=== PATIENT | female | born 1930 | race Caucasian/White ===

== ENCOUNTER 2016-08-12 16:40 | Inpatient (IN) | payer MEDICARE, OTHER ==
[2016-08-12] MEDS ORDERED: NS 0.9% 1000 ML* 1,000 ML IV ONE ×2 (17:29→22:18)
--- NOTE | 2016-08-12 17:49 | RAD ---
INDICATION: Fever COMPARISON: None TECHNIQUE: An AP portable view obtained at 1744 hours is submitted. FINDINGS: Bones/Soft Tissues: There are no acute bony findings. There is a left-sided cardiac pacemaker Cardiomediastinal: The cardiomediastinal silhouette is normal. Lungs: There is bibasilar interstitial change which could be acute or chronic. Pleura: There are no significant pleural effusions. Other: None IMPRESSION: BIBASILAR INTERSTITIAL INFILTRATIVE CHANGE OF UNKNOWN CHRONICITY.
[2016-08-12 18:17] LABS: Hematocrit 35 % (35-47); Hemoglobin 10.8 g/dl (12.0-16.0); Mean Corpuscular HGB Conc 31 g/dl (31-36); Mean Corpuscular Hemoglobin 27 pg (27-31); Mean Corpuscular Volume 84 fL (80-97); Mean Platelet Volume 7 um3 (7.4-10.4); Red Blood Count 4.09 10^6/ul (4.0-5.4); Red Cell Distribution Width 15 % (10.5-15); White Blood Count 11.9 10^3/ul (3.5-10.8)
[2016-08-12 18:33] LABS: Albumin 3.2 g/dL (3.2-5.2); BUN/Creatinine Ratio 17.7 (8-20); C Reactive Protein 160.94 mg/L (< 5.00); Calcium 8.9 mg/dL (8.6-10.3); EGFR African American 89.2 (>60); EGFR Non-African American 69.3 (>60); Globulin 4.1 g/dL (2-4); Potassium 4.1 mmol/L (3.5-5.0); Total Bilirubin 0.5 mg/dL (0.2-1.0); Total Protein 7.3 g/dL (6.4-8.9)
[2016-08-12 18:35] LABS: Troponin I 0.03 ng/mL (<0.04)
[2016-08-12 20:09] LABS: Urine Bilirubin Negative (Negative); Urine Glucose Negative (Negative); Urine Nitrite Negative (Negative)
--- NOTE | 2016-08-12 21:35 | RAD ---
INDICATION: Fever. Cholecystectomy COMPARISON: CT 07/29/2016 TECHNIQUE: Longitudinal and transverse scans of the right upper quadrant were obtained. Doppler interrogation of the hepatic and portal venous system was performed. FINDINGS: Liver: The liver is mildly heterogeneous in echotexture. The liver measures 13.8 cm in cephalocaudal dimension. There is a right hepatic lobe cyst measuring 2.0 x 1.2 x 2.2 cm. Vessels: There is normal hepatic and portal venous flow. Bile ducts: There is mild intra- and extrahepatic ductal dilatation likely related to postcholecystectomy state. The common duct measures 1.2 cm. Gallbladder: Cholecystectomy. Pancreas: Very limited evaluation. Right kidney: The right kidney is normal in size and echogenicity. There are no masses or calculi. There is no evidence of hydronephrosis. The right kidney measures 9.2 x 3.8 x 3.9 cm. IVC and aorta: The aorta and superior vena cava appear normal. Fluid: There is no ascites. Other: There is a probable small peripancreatic lymph node in the holley hepatis. This measures 1.3 x 0.6 cm. There is a small right-sided effusion. IMPRESSION: CHOLECYSTECTOMY. MILD DUCTAL DILATATION LIKELY RELATED TO POSTCHOLECYSTECTOMY STATE. SMALL PERIPANCREATIC LYMPH NODE. A SHORT AXIS MEASUREMENT IS NOT ENLARGED. SMALL RIGHT-SIDED EFFUSION.
[2016-08-12] MEDS ORDERED: Levofloxacin TAB* 250 MG PO ONE (22:10)
[2016-08-12] MEDS ORDERED: cefTRIAXone(*) 1 GM in NS 0.9% 50 ML* 50 ML IVPB ONE (22:15)
--- NOTE | 2016-08-12 23:31 | ED ---
Rashel Garces Billy, scribed for Tony Martinez MD on 08/12/16 at 1722 . Complex/Multi-Sys Presentation - HPI Summary HPI Summary: Patient is an 86 year-old female coming to [facility] with her daughter for evaluation of a fever, and concern for influenza. She is currently being treated with ciprofloxacin. Her daughter states that retirement staff noticed several days ago that the patient had increased confusion. At this time in the ED, the patient is calm, afebrile, and denies any symptoms such as cough or pain. However, her daughter states that the patient is certainly more confused than baseline. - History Of Current Complaint Chief Complaint: EDFever Time Seen by Provider: 08/12/16 16:45 Hx Obtained From: Family/Dog Walker - daughter Hx From Patient Unobtainable Due To: Altered Mental Status - increased confusion Onset/Duration: Gradual Onset, Lasting Days, Still Present Timing: Constant Severity Currently: Moderate Severity Initially: Moderate Location: Negative Aggravating Factor(s): none Alleviating Factor(s): none Associated Signs And Symptoms: Positive: Confusion, Fever. Negative: Cough - Allergies/Home Medications Allergies/Adverse Reactions: Allergies Allergy/AdvReac Type Severity Reaction Status Date / Time No Known Allergies Allergy Verified 07/22/16 15:53 PMH/Surg Hx/FS Hx/Imm Hx Cardiovascular History: Reports: Hx Atrial Fibrillation, Hx Pacemaker/ICD Musculoskeletal History: Reports: Other Musculoskeletal History - hip and knee replacements Neurological History: Reports: Other Neuro Impairments/Disorders - Alzheimer's - Surgical History Surgery Procedure, Year, and Place: HYSTERECTOMY Infectious Disease History: No Infectious Disease History: Denies: Traveled Outside the [place] in Last 30 Days - Family History Known Family History: Negative: Cardiac Disease, Hypertension, Diabetes - Social History Alcohol Use: None Hx Substance Use: No Substance Use Type: Reports: None Hx Tobacco Use: No Smoking Status (MU): Never Smoked Tobacco Review of Systems Positive: Fever - afebrile at this time Negative: Cough Neurological: Other - increased confusion All Other Systems Reviewed And Are Negative: Yes Physical Exam Triage Information Reviewed: Yes Vital Signs On Initial Exam: Initial Vitals Temp Pulse Resp BP Pulse Ox 99.2 F 84 20 110/64 100 08/12/16 16:47 08/12/16 16:47 08/12/16 16:47 08/12/16 16:47 08/12/16 16:47 Vital Signs Reviewed: Yes Completion Of Physical Exam Limited Due To: Altered Mental Status Appearance: Positive: Well-Appearing, No Pain Distress Skin: Positive: Warm, Skin Color Reflects Adequate Perfusion, Dry Head/Face: Positive: Normal Head/Face Inspection Eyes: Positive: Normal Respiratory/Lung Sounds: Positive: Clear to Auscultation, Breath Sounds Present Cardiovascular: Positive: RRR Abdomen Description: Positive: Nontender, Soft Musculoskeletal: Positive: Normal Neurological: Positive: Other - does not seem to understand questions Psychiatric: Positive: Affect/Mood Appropriate AVPU Assessment: Alert Diagnostics - Vital Signs Vital Signs Temp Pulse Resp BP Pulse Ox 08/12/16 16:47 99.2 F 84 20 110/64 100 - Laboratory Lab Results: Lab Results 08/12/16 08/12/16 08/12/16 Range/Units 17:50 17:58 17:58 WBC 11.9 H (3.5-10.8) 10^3/ul RBC 4.09 (4.0-5.4) 10^6/ul Hgb 10.8 L (12.0-16.0) g/dl Hct 35 (35-47) % MCV 84 (80-97) fL MCH 27 (27-31) pg MCHC 31 (31-36) g/dl RDW 15 (10.5-15) % Plt Count 294 (150-450) 10^3/ul MPV 7 L (7.4-10.4) um3 Neut % (Auto) 74.1 (38-83) % Lymph % (Auto) 12.7 L (25-47) % Harris % (Auto) 12.7 H (1-9) % Eos % (Auto) 0 (0-6) % Baso % (Auto) 0.5 (0-2) % Absolute Neuts (auto) 8.8 H (1.5-7.7) 10^3/ul Absolute Lymphs (auto) 1.5 (1.0-4.8) 10^3/ul Absolute Monos (auto) 1.5 H (0-0.8) 10^3/ul Absolute Eos (auto) 0 (0-0.6) 10^3/ul Absolute Basos (auto) 0.1 (0-0.2) 10^3/ul Absolute Nucleated RBC 0.01 10^3/ul Nucleated RBC % 0.1 INR (Anticoag Therapy) 1.03 (0.89-1.11) Sodium 132 L (133-145) mmol/L Potassium 4.1 (3.5-5.0) mmol/L Chloride 100 L (101-111) mmol/L Carbon Dioxide 25 (22-32) mmol/L Anion Gap 7 (2-11) mmol/L BUN 14 (6-24) mg/dL Creatinine 0.79 (0.51-0.95) mg/dL Est GFR ( Amer) 89.2 (>60) Est GFR (Non-Af Amer) 69.3 (>60) BUN/Creatinine Ratio 17.7 (8-20) Glucose 112 H (70-100) mg/dL Lactic Acid (0.5-2.0) mmol/L Calcium 8.9 (8.6-10.3) mg/dL Total Bilirubin 0.50 (0.2-1.0) mg/dL AST 26 (13-39) U/L ALT 17 (7-52) U/L Alkaline Phosphatase 152 H (34-104) U/L Troponin I 0.03 (<0.04) ng/mL C-Reactive Protein 160.94 H (< 5.00) mg/L Total Protein 7.3 (6.4-8.9) g/dL Albumin 3.2 (3.2-5.2) g/dL Globulin 4.1 H (2-4) g/dL Albumin/Globulin Ratio 0.8 L (1-3) Urine Color Urine Appearance Urine pH (5-9) Ur Specific [place] (1.010-1.030) Urine Protein (Negative) Urine Ketones (Negative) Urine Blood (Negative) Urine Nitrate (Negative) Urine Bilirubin (Negative) Urine Urobilinogen (Negative) Ur Leukocyte Esterase (Negative) Urine Glucose (Negative) Urine Ascorbic Acid (Negative) Influenza A (Rapid) (Negative) Influenza B (Rapid) (Negative) 08/12/16 08/12/16 08/12/16 Range/Units 17:58 18:47 20:00 WBC (3.5-10.8) 10^3/ul RBC (4.0-5.4) 10^6/ul Hgb (12.0-16.0) g/dl Hct (35-47) % MCV (80-97) fL MCH (27-31) pg MCHC (31-36) g/dl RDW (10.5-15) % Plt Count (150-450) 10^3/ul MPV (7.4-10.4) um3 Neut % (Auto) (38-83) % Lymph % (Auto) (25-47) % Harris % (Auto) (1-9) % Eos % (Auto) (0-6) % Baso % (Auto) (0-2) % Absolute Neuts (auto) (1.5-7.7) 10^3/ul Absolute Lymphs (auto) (1.0-4.8) 10^3/ul Absolute Monos (auto) (0-0.8) 10^3/ul Absolute Eos (auto) (0-0.6) 10^3/ul Absolute Basos (auto) (0-0.2) 10^3/ul Absolute Nucleated RBC 10^3/ul Nucleated RBC % INR (Anticoag Therapy) (0.89-1.11) Sodium (133-145) mmol/L Potassium (3.5-5.0) mmol/L Chloride (101-111) mmol/L Carbon Dioxide (22-32) mmol/L Anion Gap (2-11) mmol/L BUN (6-24) mg/dL Creatinine (0.51-0.95) mg/dL Est GFR ( Amer) (>60) Est GFR (Non-Af Amer) (>60) BUN/Creatinine Ratio (8-20) Glucose (70-100) mg/dL Lactic Acid 1.0 (0.5-2.0) mmol/L Calcium (8.6-10.3) mg/dL Total Bilirubin (0.2-1.0) mg/dL AST (13-39) U/L ALT (7-52) U/L Alkaline Phosphatase (34-104) U/L Troponin I (<0.04) ng/mL C-Reactive Protein (< 5.00) mg/L Total Protein (6.4-8.9) g/dL Albumin (3.2-5.2) g/dL Globulin (2-4) g/dL Albumin/Globulin Ratio (1-3) Urine Color Yellow Urine Appearance Clear Urine pH 6.0 (5-9) Ur Specific [place] 1.017 (1.010-1.030) Urine Protein Negative (Negative) Urine Ketones Negative (Negative) Urine Blood Negative (Negative) Urine Nitrate Negative (Negative) Urine Bilirubin Negative (Negative) Urine Urobilinogen Negative (Negative) Ur Leukocyte Esterase Negative (Negative) Urine Glucose Negative (Negative) Urine Ascorbic Acid * H (Negative) Influenza A (Rapid) Negative (Negative) Influenza B (Rapid) Negative (Negative) Result Diagrams: 08/12/16 17:50 08/12/16 17:58 Lab Statement: Any lab studies that have been ordered have been reviewed, and results considered in the medical decision making process. - Radiology CXR Radiology Interpretation Completed By: Radiologist - BIBASILAR INTERSTITIAL INFILTRATIVE CHANGE OF UNKNOWN CHRONICITY. - Ultrasound No standard instances Ultrasound Interpretation Completed By: Radiologist - Abdominal US: CHOLECYSTECTOMY. MILD DUCTAL DILATATION LIKELY RELATED TO POSTCHOLECYSTECTOMY STATE. SMALL PERIPANCREATIC LYMPH NODE. A SHORT AXIS MEASUREMENT IS NOT ENLARGED. SMALL RIGHT-SIDED EFFUSION. - EKG 1802 EKG Interpretation: afib 110 bpm, nonspecific changes Complex Multi-Symp Course/Dx Course Of Treatment: Maria Del Rosario Barba presented from the [place] with more confusion. She has been on Cipro for a UTI but reportedly ran a fever today. She was found to have a likely pneumonia and was treated with antibiotics and fluids. She has underlying A-fib and came in a little fast but improved some with fluids and I think she is stable for outpatient treatment. - Diagnoses Provider Diagnoses: Pneumonia Discharge - Discharge Plan Condition: Stable Disposition: HOME Prescriptions: Cefdinir* [Omnicef*] 600 mg PO DAILY #9 btl Patient Education Materials: Pneumonia (ED) Referrals: Deirdre Allred MD [Primary Care Provider] - The documentation as recorded by the Rashel shaw Billy accurately reflects the service I personally performed and the decisions made by me, Tony Martinez MD.
--- NOTE | 2016-08-13 02:05 | ED ---
Natanael Garces Matthew, scribed for Bud Calhoun on 08/13/16 at 0159 . Progress - Progress Note Progress Note: The patient is a sign out from Dr. Martinez. The patient is tachycardic and hypoxic. She will be admitted to Dr. Henderson for further work-up and management. The patient does normal use home oxygen. Course/Dx - Course Course Of Treatment: Maria Del Rosario Barba presented from the [place] with more confusion. She has been on Cipro for a UTI but reportedly ran a fever today. She was found to have a likely pneumonia and was treated with antibiotics and fluids. She has underlying A-fib and came in a little fast but improved some with fluids and I think she is stable for outpatient treatment. - Diagnoses Provider Diagnoses: Pneumonia - Provider Notifications Discussed Care Of Patient With: Dr. Henderson (Hospitalist) at 1:58 -- Notified of patient's history and will admit the patient into his services. The documentation as recorded by the Natanael shaw Matthew accurately reflects the service I personally performed and the decisions made by me, Bud Calhoun.
[2016-08-13] MEDS ORDERED: Benzonatate CAP* 100 MG PO PRN (04:56)
[2016-08-13] MEDS ORDERED: Furosemide TAB* 20 MG PO SCH (05:00)
--- NOTE | 2016-08-13 07:39 | PN ---
Subjective Date of Service: 08/13/16 Interval History: Pt is feeling well. She denies any pain or SOB but she is not sure where she is or what is going on. Objective Active Medications: Atenolol (Tenormin Tab*) 25 mg PO DAILY LEVAR Benzonatate (Tessalon Cap*) 200 mg PO TID PRN PRN Reason: COUGH Cholecalciferol (Vitamin D Tab*) 1,000 units PO DAILY LEVAR Dabigatran (Pradaxa Cap(Nf)) 150 mg PO BID LEVAR Ferrous Sulfate (Ferrous Sulfate Tab*) 325 mg PO BID LEVAR Sodium Chloride (Ns 0.9% 1000 Ml*) 1,000 mls @ 100 mls/hr IV PER RATE LEVAR Ceftriaxone Sodium 1,000 mg/ (Sodium Chloride) 50 mls @ 200 mls/hr IVPB Q24H LEVAR Azithromycin 500 mg/ Sodium (Chloride) 250 mls @ 250 mls/hr IVPB Q24H LEVAR Multivitamins/Minerals (Preservision Areds(Multivitamins/Mineral)(Nf)) 1 cap PO BID LEVAR Omeprazole (Prilosec Cap*) 20 mg PO DAILY LEVAR Trazodone HCl (Desyrel Tab*) 100 mg PO BEDTIME LEVAR Vital Signs 08/13/16 08/13/16 08/13/16 05:00 05:23 06:16 Temperature 98.8 F 99.3 F Pulse Rate 121 103 Respiratory 24 Rate Blood Pressure 132/88 124/61 (mmHg) O2 Sat by Pulse 93 96 Oximetry 08/13/16 08/13/16 06:24 06:47 Temperature 99.3 F Pulse Rate 103 Respiratory 24 24 Rate Blood Pressure 124/61 (mmHg) O2 Sat by Pulse 96 Oximetry Oxygen Devices in Use Now: Nasal Cannula - 2L-96% Appearance: Elderly female lying flat in bed, NAD Eyes: No Scleral Icterus Ears/Nose/Mouth/Throat: Mucous Membranes Moist Respiratory: Symmetrical Chest Expansion and Respiratory Effort, - - crackles about 1/[address] up on L Cardiovascular: NL Sounds; No Murmurs; No JVD, No Edema, - - irregularly irregular, mildly tachycardic Abdominal: NL Sounds; No Tenderness; No Distention Extremities: No Clubbing, Cyanosis Skin: No Rash or Ulcers, No Nodules or Sclerosis Neurological: - - pleasantly confused Result Diagrams: 08/12/16 17:50 08/12/16 17:58 Additional Lab and Data: Lab Results 08/12/16 08/12/16 08/12/16 Range/Units 17:50 17:58 17:58 WBC 11.9 H (3.5-10.8) 10^3/ul RBC 4.09 (4.0-5.4) 10^6/ul Hgb 10.8 L (12.0-16.0) g/dl Hct 35 (35-47) % MCV 84 (80-97) fL MCH 27 (27-31) pg MCHC 31 (31-36) g/dl RDW 15 (10.5-15) % Plt Count 294 (150-450) 10^3/ul MPV 7 L (7.4-10.4) um3 Neut % (Auto) 74.1 (38-83) % Lymph % (Auto) 12.7 L (25-47) % Churchill % (Auto) 12.7 H (1-9) % Eos % (Auto) 0 (0-6) % Baso % (Auto) 0.5 (0-2) % Absolute Neuts (auto) 8.8 H (1.5-7.7) 10^3/ul Absolute Lymphs (auto) 1.5 (1.0-4.8) 10^3/ul Absolute Monos (auto) 1.5 H (0-0.8) 10^3/ul Absolute Eos (auto) 0 (0-0.6) 10^3/ul Absolute Basos (auto) 0.1 (0-0.2) 10^3/ul Absolute Nucleated RBC 0.01 10^3/ul Nucleated RBC % 0.1 INR (Anticoag Therapy) 1.03 (0.89-1.11) Sodium 132 L (133-145) mmol/L Potassium 4.1 (3.5-5.0) mmol/L Chloride 100 L (101-111) mmol/L Carbon Dioxide 25 (22-32) mmol/L Anion Gap 7 (2-11) mmol/L BUN 14 (6-24) mg/dL Creatinine 0.79 (0.51-0.95) mg/dL Est GFR ( Amer) 89.2 (>60) Est GFR (Non-Af Amer) 69.3 (>60) BUN/Creatinine Ratio 17.7 (8-20) Glucose 112 H (70-100) mg/dL Lactic Acid (0.5-2.0) mmol/L Calcium 8.9 (8.6-10.3) mg/dL Total Bilirubin 0.50 (0.2-1.0) mg/dL AST 26 (13-39) U/L ALT 17 (7-52) U/L Alkaline Phosphatase 152 H (34-104) U/L Troponin I 0.03 (<0.04) ng/mL C-Reactive Protein 160.94 H (< 5.00) mg/L Total Protein 7.3 (6.4-8.9) g/dL Albumin 3.2 (3.2-5.2) g/dL Globulin 4.1 H (2-4) g/dL Albumin/Globulin Ratio 0.8 L (1-3) Urine Color Urine Appearance Urine pH (5-9) Ur Specific [place] (1.010-1.030) Urine Protein (Negative) Urine Ketones (Negative) Urine Blood (Negative) Urine Nitrate (Negative) Urine Bilirubin (Negative) Urine Urobilinogen (Negative) Ur Leukocyte Esterase (Negative) Urine Glucose (Negative) Urine Ascorbic Acid (Negative) Influenza A (Rapid) (Negative) Influenza B (Rapid) (Negative) 08/12/16 08/12/16 08/12/16 Range/Units 17:58 18:47 20:00 WBC (3.5-10.8) 10^3/ul RBC (4.0-5.4) 10^6/ul Hgb (12.0-16.0) g/dl Hct (35-47) % MCV (80-97) fL MCH (27-31) pg MCHC (31-36) g/dl RDW (10.5-15) % Plt Count (150-450) 10^3/ul MPV (7.4-10.4) um3 Neut % (Auto) (38-83) % Lymph % (Auto) (25-47) % Churchill % (Auto) (1-9) % Eos % (Auto) (0-6) % Baso % (Auto) (0-2) % Absolute Neuts (auto) (1.5-7.7) 10^3/ul Absolute Lymphs (auto) (1.0-4.8) 10^3/ul Absolute Monos (auto) (0-0.8) 10^3/ul Absolute Eos (auto) (0-0.6) 10^3/ul Absolute Basos (auto) (0-0.2) 10^3/ul Absolute Nucleated RBC 10^3/ul Nucleated RBC % INR (Anticoag Therapy) (0.89-1.11) Sodium (133-145) mmol/L Potassium (3.5-5.0) mmol/L Chloride (101-111) mmol/L Carbon Dioxide (22-32) mmol/L Anion Gap (2-11) mmol/L BUN (6-24) mg/dL Creatinine (0.51-0.95) mg/dL Est GFR ( Amer) (>60) Est GFR (Non-Af Amer) (>60) BUN/Creatinine Ratio (8-20) Glucose (70-100) mg/dL Lactic Acid 1.0 (0.5-2.0) mmol/L Calcium (8.6-10.3) mg/dL Total Bilirubin (0.2-1.0) mg/dL AST (13-39) U/L ALT (7-52) U/L Alkaline Phosphatase (34-104) U/L Troponin I (<0.04) ng/mL C-Reactive Protein (< 5.00) mg/L Total Protein (6.4-8.9) g/dL Albumin (3.2-5.2) g/dL Globulin (2-4) g/dL Albumin/Globulin Ratio (1-3) Urine Color Yellow Urine Appearance Clear Urine pH 6.0 (5-9) Ur Specific [place] 1.017 (1.010-1.030) Urine Protein Negative (Negative) Urine Ketones Negative (Negative) Urine Blood Negative (Negative) Urine Nitrate Negative (Negative) Urine Bilirubin Negative (Negative) Urine Urobilinogen Negative (Negative) Ur Leukocyte Esterase Negative (Negative) Urine Glucose Negative (Negative) Urine Ascorbic Acid * H (Negative) Influenza A (Rapid) Negative (Negative) Influenza B (Rapid) Negative (Negative) Assess/Plan/Problems-Billing Ms Barba is an 86 yo F who has a h/o afib, dementia and GERD who presented to the ER with c/o worsened confusion and fever and was admitted as she was found to be mildly hypoxic in the ER. - Patient Problems (1) RLL pneumonia Current Visit: Yes Status: Acute Code(s): J18.1 - LOBAR PNEUMONIA, UNSPECIFIED ORGANISM SNOMED Code(s): 662170040 Comment: On CXR the patient appears to have bibasilar infiltrative change R> L. With the low grade temp (99.2-99.3) and hypoxia found in the ER pneumonia is a possiblility. Will send urinary legionella and s pneumoniae antigens. Continue ceftriaxone and azithromycin for now. Will try to wean from supplemental O2. She does not appear to be in any respiratory distress. Monitor respiratory symptoms. (2) Afib Current Visit: Yes Status: Acute Code(s): I48.91 - UNSPECIFIED ATRIAL FIBRILLATION SNOMED Code(s): 09134950 Comment: The patient's afib is currently not well controlled. Will increase her atenolol to 25mg daily. Will continue current does of pradaxa. Monitor HR. (3) Dementia Current Visit: Yes Status: Acute Code(s): F03.90 - UNSPECIFIED DEMENTIA WITHOUT BEHAVIORAL DISTURBANCE SNOMED Code(s): 68515241 Comment: The patient was brought in for more confusion than usual. Will need to discuss with the patient's daughter what her baseline is. Currently she is unable to even tell me she was in the hospital. Re-orient as needed and continue supportive care. (4) GERD (gastroesophageal reflux disease) Current Visit: Yes Status: Acute Code(s): K21.9 - GASTRO-ESOPHAGEAL REFLUX DISEASE WITHOUT ESOPHAGITIS SNOMED Code(s): 290429479 Comment: Continue omeprazole. (5) DVT prophylaxis Current Visit: Yes Status: Acute Code(s): UBX0767 - SNOMED Code(s): 291273129 Comment: pradaxa (6) Full code status Current Visit: Yes Status: Acute Code(s): Z78.9 - OTHER SPECIFIED HEALTH STATUS SNOMED Code(s): 044804505
[2016-08-13] MEDS: cefTRIAXone VIAL(*) 1,000 MG in NS 0.9% 50 ML* 50 ML IVPB SCH ×2 (08:29→08:35)
[2016-08-13] MEDS ORDERED: CMC Dabigatran CAP(NF) 150 MG CAP PO SCH (09:00)
[2016-08-13] MEDS ORDERED: MINERALS PO SCH (09:00)
[2016-08-13] MEDS ORDERED: Atenolol TAB* 25 MG PO SCH (09:00)
[2016-08-13] MEDS ORDERED: MULTIPLE VITAMINS PO SCH (09:00)
[2016-08-13] MEDS: Cholecalciferol TAB* 1000 UNITS PO SCH (09:42)
[2016-08-13] MEDS: Omeprazole CAP* 20 MG PO SCH (09:42)
[2016-08-13] MEDS: Azithromycin IV(*) 500 MG in NS 0.9% 250 ML* 250 ML IVPB SCH (09:43)
[2016-08-13] MEDS: Ferrous Sulfate TAB* 325 MG PO SCH ×2 (09:43→22:15)
[2016-08-13] MEDS: Atenolol TAB* 25 MG PO SCH (09:43)
[2016-08-13] MEDS: Multivitamins/Minera Areds(NF) 1 CAP CAP PO SCH ×2 (09:53→22:17)
--- NOTE | 2016-08-13 14:42 | CONSULT ---
Consult Consult: Ms. Barba is an 86 year old woman with history of dementia, now with increased immobility, stiffness, a markedly elevated CRP, basilar infiltrates and elevated alkaline phosphatase. In part this could be from polymyalgia rheumatica, given her age, inflammation and decreased mobility; also consider viral process? I advise a trial of Prednisone 20mg daily which at a low dose may help her symptoms and reduce inflammation. Check vitamin D in light of elevated alk phos. Will check autoimmune serologies and follow; thanks!
[2016-08-13] MEDS: predniSONE TAB* 20 MG PO SCH (16:20)
[2016-08-13] MEDS: NS 0.9% 1000 ML* 1,000 ML IV SCH (17:53)
[2016-08-13] MEDS: traZODone TAB* 100 MG PO SCH (22:15)
[2016-08-14] MEDS: NS 0.9% 1000 ML* 1,000 ML IV SCH (04:19)
[2016-08-14] MEDS: Azithromycin IV(*) 500 MG in NS 0.9% 250 ML* 250 ML IVPB SCH (04:39)
[2016-08-14] MEDS: cefTRIAXone VIAL(*) 1,000 MG in NS 0.9% 50 ML* 50 ML IVPB SCH (04:39)
[2016-08-14 08:17] LABS: BUN/Creatinine Ratio 21.9 (8-20); Calcium 7.7 mg/dL (8.6-10.3); EGFR African American 113.7 (>60); EGFR Non-African American 88.4 (>60); Potassium 3.8 mmol/L (3.5-5.0)
[2016-08-14 08:18] LABS: Hematocrit 30 % (35-47); Hemoglobin 9.6 g/dl (12.0-16.0); Mean Corpuscular HGB Conc 32 g/dl (31-36); Mean Corpuscular Hemoglobin 27 pg (27-31); Mean Corpuscular Volume 85 fL (80-97); Mean Platelet Volume 8 um3 (7.4-10.4); Red Blood Count 3.58 10^6/ul (4.0-5.4); Red Cell Distribution Width 15 % (10.5-15); White Blood Count 10.2 10^3/ul (3.5-10.8)
--- NOTE | 2016-08-14 08:42 | CONS ---
CONSULTATION REPORT: DATE OF CONSULT: 08/13/16 CONSULTING PHYSICIAN: Sosa Savage DO REASON FOR CONSULTATION: Evaluate for cause of elevated inflammatory markers. HISTORY OF PRESENT ILLNESS: Ms. Maria Del Rosario Barba is an 86-year-old woman with a history of dementia . History is obtained partly from the patient, but also her daughter, and the chart as well as hosp ital records. She presented with an evaluation of a low-grade fever. She had been followed with Dr Jostin Allred, but her daughter had noted over the past couple of days that she had had increased confusi on over and above her baseline and confusion with increased immobility and some decline in overall c ognitive function, but also physical functions, so that she was not walking very well. The patient denied any headache or jaw pain, or jaw claudication type symptoms. She denied any specific pain, b ut it was noted that she was having some difficulty with mobilization in terms of her hips and shoul gianni regions. She had been treated for an upper respiratory infection with ciprofloxacin, but she carrillo s had increased confusion and therefore, she was admitted from the emergency center. She currently denies any cough or pain, but she has been more confused as noted above. Imaging studies revealed s ome basilar infiltrates and she also had an elevated alkaline phosphatase as well as a markedly elev ated C-reactive protein, consistent with an inflammatory type process. She currently has no specifi c complaints except that she has been confused and she has had a low-grade fever, but she denied any cough. PAST MEDICAL HISTORY: Includes a history of dementia. PAST SURGICAL HISTORY: Includes pacemaker. IMMUNE HISTORY: No recent immunizations. CARDIOVASCULAR HISTORY: She does have a history of atrial fibrillation and a history of a pacemaker and ICD. MUSCULOSKELETAL HISTORY: Includes a hip and knee replacement. NEUROLOGIC: Notable for Alzheimer's dementia. No recent infectious history. Denies any recent dyan el outside of the [place]. CURRENT MEDICATIONS: Include: 1. Omeprazole. 2. Sodium chloride/trazodone 100 mg at bedtime. 3. Atenolol. 4. Ceftriaxone. 5. Pradaxa. 6. Furosemide. 7. She is also on Levaquin. FAMILY HISTORY: Negative for cardiac disease, hypertension, or diabetes or immune conditions. SOCIAL HISTORY: No alcohol use, no substance abuse, and no tobacco use. She has never smoked tobac co. REVIEW OF SYSTEMS: Notable for fever, but she was afebrile at the time. Pulmonary: Denied cough or shortness of breath. Cardiac: Denied chest wall pain. Abdomen: Denied stomach upset. Neurologic : Denied specific headaches. Musculoskeletal: Mild obstruction as noted. Endocrine: No glandular swelling. No lymph node swelling. Other 14-point review of systems were reviewed with the patient and her daughter and were otherwise negative. She has been more confused lately, but she is able to answer simple questions. PHYSICAL EXAMINATION: General: She was pleasant, in no acute distress. Supine. She required elli tance with mobilization, even sitting up. Vital Signs: T-max was 99.3, pulse rate of 100 to 103, r espiratory rate of 24, blood pressure 124/61, and O2 sats is 96%. HEENT: Exam was normocephalic an d atraumatic. Pupils equal, round, and reactive to light and accommodate. Mucous membranes are efra st. Respiratory: Symmetric chest expansion in respiratory effort with some minimal crackles at the base of the left and right. Cardiovascular: Exam revealed normal heart sounds except for the rate was irregularly irregular and she was mildly tachycardic. Neck: No JVP distention and no edema. V ascular: No carotid bruits. Abdomen: Soft, nontender, and nondistended. No organomegaly. No hepa tosplenomegaly. Extremities: No cyanosis, clubbing, or edema. Skin: No rashes or ulcers. No nod ules or sclerosis. Neurologic: No focal weakness. She was able to answer very simple questions, b ut was otherwise confused as to where she was and cannot provide an extensive history. Psychiatric: Pleasant affect. 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 There is minimal restriction of the shoulders and cervical spine region. : No CVA tenderness. LABORATORY DATA: She had a white count of 11.9; hemoglobin of 10.8; and platelets of 294,000. BUN 14 and creatinine 0.79. She had an alkaline phosphatase of 152. Sodium of 132, which was slightly l ow. Urine protein negative. ASSESSMENT: She is an 86-year-old woman with a history of dementia, anemia requiring a recent trans fusion, also with increasing confusion recently, low-grade fever, and basilar infiltrates. Her work up revealed an elevated C-reactive protein. I think in part based on her age as well the decreased mobility and stiffness that she possibly has polymyalgia rheumatica. She is unable to provide an ex tensive history in terms of stiffness or discomfort, so I think that given the inflammatory changes and that other more acute processes have been ruled, we could try a very low dose of prednisone at 2 0 mg daily. I doubt that she has temporal arteritis as she really does not have any of these other features. Her anemia and elevated alk phos could be a part of the underlying inflammatory process, but also consider other etiologies. I would check a vitamin D level, consider checking iron studies , and B12 as well too. Discussed with the daughter as well as the patient and the Hospitalist, if t his does provide a dramatic improvement, then I would plan to taper the prednisone over the next cou ple of weeks. 1. Atrial fibrillation: She is atenolol. 2. Dementia: Continue supportive care and redirection. 3. Gastroesophageal reflux disease: Prevention - she is on a proton pump inhibitor. 4. Low-grade fever: Would follow the C-reactive protein. TIME SPENT: Time spent with the patient was greater than 60 minutes with greater than 50% of the ti me spent counseling. [id number]/[facility] #: [id number]
[2016-08-14] MEDS: Ferrous Sulfate TAB* 325 MG PO SCH ×2 (09:14→21:56)
[2016-08-14] MEDS: predniSONE TAB* 20 MG PO SCH (09:14)
[2016-08-14] MEDS: Atenolol TAB* 25 MG PO SCH (09:14)
[2016-08-14] MEDS: Cholecalciferol TAB* 1000 UNITS PO SCH (09:14)
[2016-08-14] MEDS: Omeprazole CAP* 20 MG PO SCH (09:14)
[2016-08-14] MEDS: Multivitamins/Minera Areds(NF) 1 CAP CAP PO SCH ×2 (09:15→21:56)
--- NOTE | 2016-08-14 10:28 | PN ---
Subjective - Subjective History: Elevated ESR, CRP, myalgias: Constellation of symptoms and serologies point towards polymyalgia rheumatica at least in part as an etiology of her elevated inflammatory markers. She seems to be feeling well on low dose Prednisone. Consider gradual taper of Prednisone by decreasing dose by 5mg every week. I would be happy to see her within 1 week of discharge to help monitor her taper. Anema: may in part be due to her chronic inflammatory condition. B12 is above normal. Elevated alk phos: consider checking PTH level as calcium is now slightly low. Basilar infiltrates: Overall doing well; continue supportive care and antibiotics. Active Problems: Active Problems Afib (Acute) I48.91 The patient's afib is currently not well controlled. Will increase her atenolol to 25mg daily. Will continue current does of pradaxa. Monitor HR. DVT prophylaxis (Acute) [id number] pradaxa Dementia (Acute) F03.90 The patient was brought in for more confusion than usual. Will need to discuss with the patient's daughter what her baseline is. Currently she is unable to even tell me she was in the hospital. Re-orient as needed and continue supportive care. Full code status (Acute) Z78.9 GERD (gastroesophageal reflux disease) (Acute) K21.9 Continue omeprazole. RLL pneumonia (Acute) J18.1 On CXR the patient appears to have bibasilar infiltrative change R>L. With the low grade temp (99.2-99.3) and hypoxia found in the ER pneumonia is a possiblility. Will send urinary legionella and s pneumoniae antigens. Continue ceftriaxone and azithromycin for now. Will try to wean from supplemental O2. She does not appear to be in any respiratory distress. Monitor respiratory symptoms. Current Medications: Current Medications Atenolol (Tenormin Tab*) 25 mg PO DAILY [facility] Last Admin: 08/14/16 09:14 Dose: 25 mg Benzonatate (Tessalon Cap*) 200 mg PO TID PRN PRN Reason: COUGH Cholecalciferol (Vitamin D Tab*) 1,000 units PO DAILY [facility] Last Admin: 08/14/16 09:14 Dose: 1,000 units Ferrous Sulfate (Ferrous Sulfate Tab*) 325 mg PO BID [facility] Last Admin: 08/14/16 09:14 Dose: 325 mg Sodium Chloride (Ns 0.9% 1000 Ml*) 1,000 mls @ 100 mls/hr IV PER RATE [facility] Last Admin: 08/14/16 04:19 Dose: 100 mls/hr Ceftriaxone Sodium 1,000 mg/ (Sodium Chloride) 50 mls @ 200 mls/hr IVPB Q24H [facility] Last Admin: 08/14/16 04:39 Dose: 200 mls/hr Azithromycin 500 mg/ Sodium (Chloride) 250 mls @ 250 mls/hr IVPB Q24H [facility] Last Admin: 08/14/16 04:39 Dose: 250 mls/hr Multivitamins/Minerals (Preservision Areds(Multivitamins/Mineral)(Nf)) 1 cap PO BID [facility] Last Admin: 08/14/16 09:15 Dose: Not Given Omeprazole (Prilosec Cap*) 20 mg PO DAILY [facility] Last Admin: 08/14/16 09:14 Dose: 20 mg Prednisone (Deltasone Tab*) 20 mg PO DAILY [facility] Last Admin: 08/14/16 09:14 Dose: 20 mg Trazodone HCl (Desyrel Tab*) 100 mg PO BEDTIME [facility] Last Admin: 08/13/16 22:15 Dose: 100 mg - Review of Systems Constitutional Symptoms: Yes: Weakness, No: Weight Gain, Weight Loss, Fever, Unexplained Falls Dermatology: Normal: No HEENT: No Normal Eyes: Positive: Normal Thyroid: Positive: Normal Pulmonary: Positive: Normal Cardiology: Positive: Normal Endocrinology: Positive: Normal Hematologic/Lymphatic: Positive: Anemia Neurology: Positive: Change in Memory Home Medications: Home Medications Medication Instructions Recorded Confirmed Type Ascorbic Acid [Vitamin C] 500 mg PO DAILY 12/04/15 08/13/16 History Calcium Carbonate-Cholecalcife 1 tab PO BID 12/04/15 08/13/16 History [Calcium 500 +D3 500-600 mg-Unit] Cholecalciferol [Vitamin D3] 1,000 unit PO DAILY 12/04/15 08/13/16 History Cranberry-Vitamin C-Probiotic [Azo 1 tab PO BID 12/04/15 08/13/16 History Cranberry 250-30 mg] Dabigatran CAP(NF) [Pradaxa 150 mg PO BID 12/04/15 08/13/16 History CAP(NF)] Ferrous Sulfate TAB* 325 mg PO BID 12/04/15 08/13/16 History Multiple Vitamins W/ Minerals 1 pow PO DAILY 12/04/15 08/13/16 History [Centrum Multivitamin Flav] Multiple Vitamins W/ Minerals 1 cap PO BID 12/04/15 08/13/16 History [[facility] Formul] traZODone TAB* [Desyrel TAB*] 100 mg PO BEDTIME 12/04/15 08/13/16 History Atenolol TAB* [Tenormin TAB* 25 MG] 0.5 tab PO DAILY 07/22/16 08/13/16 History Furosemide TAB* [Lasix TAB*] 20 mg PO SEE INSTRUCTIONS 07/22/16 08/13/16 History Omeprazole CAP* [Prilosec CAP* 20 20 mg PO DAILY 08/13/16 08/13/16 History MG] Allergies: Allergies Allergy/AdvReac Type Severity Reaction Status Date / Time No Known Allergies Allergy Verified 07/22/16 15:53 Objective - Vital Signs Vital Signs: Vital Signs 08/13/16 08/13/16 08/13/16 16:03 19:18 22:32 Temperature 97.9 F 98.9 F Pulse Rate 79 74 Respiratory 18 16 16 Rate Blood Pressure 118/52 107/44 (mmHg) O2 Sat by Pulse 100 93 Oximetry 08/13/16 08/14/16 23:31 03:29 Temperature 98.5 F 98.4 F Pulse Rate 96 95 Respiratory 20 20 Rate Blood Pressure 122/59 127/62 (mmHg) O2 Sat by Pulse 90 93 Oximetry - Intake and Output Intake and Output: Intake & Output 08/12/16 08/13/16 08/14/16 08/15/16 06:59 06:59 06:59 06:59 Intake Total 2951 Balance 2951 Intake: IV Fluids 2039 ABX - CEFTRIAXONE 65 NS (0.9%) 1339 IVPB 512 ABX - AZITHROMYCIN 250 Oral 400 Other: Estimated Void Large # Voids 1 ADLs: Meal Record Start: 08/13/16 05: 38 Freq: DAILY@0900,1400,1800 Status: Active Created 08/13/16 05:38 System (Rec: 08/13/16 05:38 System MED-C16) Document 08/13/16 09:00 [id number] (Rec: 08/13/16 10:15 [id number] MED-C09) Document 08/13/16 13:52 [id number] (Rec: 08/13/16 14:31 [id number] MED-C09) Intake and Output Start: 08/13/16 05: 38 Freq: DAILY@0600,1400,2200 Status: Active Created 08/13/16 05:38 System (Rec: 08/13/16 05:38 System MED-C16) Document 08/13/16 13:52 [id number] (Rec: 08/13/16 14:31 [id number] MED-C09) Document 08/13/16 22:00 [id number] (Rec: 08/13/16 22:36 [id number] MED-C11) Document 08/14/16 05:16 [id number] (Rec: 08/14/16 05:16 [id number] MED-C26) - Physical Exam General Physical Exam Comment: No acute distress, sitting up in bed Eye Exam: bilateral: PERRLA Head: Yes Normocephalic Thyroid Function: Clinically Euthyroid Lungs and Chest: Yes: Chest Expansion Full, Chest Expansion Symetrica Heart Rate and Rhythm: Irregular JVP: Not Elevated [place] Beat: Non Displaced Additional Cardiovascular: Yes: [place] Beat not Displaced Abdominal Exam: Yes: Soft - Rheumotological System Joints: Range of Motion - No joint tenderness or restriction - Extremities Posterior Tibial Pulse: Bilateral Normal Limbs: Normal Power - Neuro Orientation: Person Speech: Normal Results - Results Lab Results: Laboratory Results - last 24 hr 08/13/16 08/13/16 08/13/16 16:11 16:11 16:11 WBC RBC Hgb Hct MCV MCH MCHC RDW Plt Count MPV ESR 74 H Sodium Potassium Chloride Carbon Dioxide Anion Gap BUN Creatinine Est GFR ( Amer) Est GFR (Non-Af Amer) BUN/Creatinine Ratio Glucose Calcium Vitamin B12 1385 H 25-OH Vitamin D Total 33.4 08/14/16 08/14/16 07:52 07:52 WBC 10.2 RBC 3.58 L Hgb 9.6 L Hct 30 L MCV 85 MCH 27 MCHC 32 RDW 15 Plt Count 250 MPV 8 ESR Sodium 136 Potassium 3.8 Chloride 108 Carbon Dioxide 21 L Anion Gap 7 BUN 14 Creatinine 0.64 Est GFR ( Amer) 113.7 Est GFR (Non-Af Amer) 88.4 BUN/Creatinine Ratio 21.9 H Glucose 91 Calcium 7.7 L Vitamin B12 25-OH Vitamin D Total Assessment - Problem List Assessment: Patient Problems Afib (Acute) DVT prophylaxis (Acute) Dementia (Acute) Full code status (Acute) GERD (gastroesophageal reflux disease) (Acute) RLL pneumonia (Acute) Plan: Elevated ESR, CRP, myalgias: Constellation of symptoms and serologies point towards polymyalgia rheumatica at least in part as an etiology of her elevated inflammatory markers. She seems to be feeling well on low dose Prednisone. Consider gradual taper of Prednisone by decreasing dose by 5mg every week. I would be happy to see her within 1 week of discharge to help monitor her taper. Anema: may in part be due to her chronic inflammatory condition. B12 is above normal. Elevated alk phos: consider checking PTH level as calcium is now slightly low. Basilar infiltrates: Overall doing well; continue supportive care and antibiotics.
--- NOTE | 2016-08-14 11:10 | PN ---
Subjective Date of Service: 08/14/16 Interval History: Pt is feeling fine. She denies any pain or SOB. She did not eat her breakfast. Objective Active Medications: Atenolol (Tenormin Tab*) 25 mg PO DAILY [facility] Last Admin: 08/14/16 09:14 Dose: 25 mg Benzonatate (Tessalon Cap*) 200 mg PO TID PRN PRN Reason: COUGH Cholecalciferol (Vitamin D Tab*) 1,000 units PO DAILY [facility] Last Admin: 08/14/16 09:14 Dose: 1,000 units Ferrous Sulfate (Ferrous Sulfate Tab*) 325 mg PO BID [facility] Last Admin: 08/14/16 09:14 Dose: 325 mg Sodium Chloride (Ns 0.9% 1000 Ml*) 1,000 mls @ 100 mls/hr IV PER RATE [facility] Last Admin: 08/14/16 04:19 Dose: 100 mls/hr Ceftriaxone Sodium 1,000 mg/ (Sodium Chloride) 50 mls @ 200 mls/hr IVPB Q24H [facility] Last Admin: 08/14/16 04:39 Dose: 200 mls/hr Azithromycin 500 mg/ Sodium (Chloride) 250 mls @ 250 mls/hr IVPB Q24H [facility] Last Admin: 08/14/16 04:39 Dose: 250 mls/hr Multivitamins/Minerals (Preservision Areds(Multivitamins/Mineral)(Nf)) 1 cap PO BID [facility] Last Admin: 08/14/16 09:15 Dose: Not Given Omeprazole (Prilosec Cap*) 20 mg PO DAILY [facility] Last Admin: 08/14/16 09:14 Dose: 20 mg Prednisone (Deltasone Tab*) 20 mg PO DAILY [facility] Last Admin: 08/14/16 09:14 Dose: 20 mg Trazodone HCl (Desyrel Tab*) 100 mg PO BEDTIME [facility] Last Admin: 08/13/16 22:15 Dose: 100 mg Vital Signs 08/13/16 08/13/16 08/13/16 16:03 19:18 22:32 Temperature 97.9 F 98.9 F Pulse Rate 79 74 Respiratory 18 16 16 Rate Blood Pressure 118/52 107/44 (mmHg) O2 Sat by Pulse 100 93 Oximetry 08/13/16 08/14/16 08/14/16 23:31 03:29 08:00 Temperature 98.5 F 98.4 F Pulse Rate 96 95 Respiratory 20 20 18 Rate Blood Pressure 122/59 127/62 (mmHg) O2 Sat by Pulse 90 93 93 Oximetry 08/14/16 09:35 Temperature 98.7 F Pulse Rate 94 Respiratory 18 Rate Blood Pressure 135/68 (mmHg) O2 Sat by Pulse 93 Oximetry Oxygen Devices in Use Now: Nasal Cannula - 2L-93% Appearance: Elderly female sitting up in bed sleeping, awakens to voice, NAD Eyes: No Scleral Icterus Ears/Nose/Mouth/Throat: Mucous Membranes Moist Respiratory: Symmetrical Chest Expansion and Respiratory Effort, Clear to Auscultation - few RLL crackles Cardiovascular: NL Sounds; No Murmurs; No JVD, No Edema, - - irregularly irregular, controlled rate Abdominal: NL Sounds; No Tenderness; No Distention Extremities: No Clubbing, Cyanosis Skin: No Rash or Ulcers, No Nodules or Sclerosis Neurological: Alert and Oriented x 3 Result Diagrams: 08/14/16 07:52 08/14/16 07:52 Additional Lab and Data: Lab Results 08/12/16 08/12/16 08/12/16 Range/Units 17:50 17:58 17:58 WBC 11.9 H (3.5-10.8) 10^3/ul RBC 4.09 (4.0-5.4) 10^6/ul Hgb 10.8 L (12.0-16.0) g/dl Hct 35 (35-47) % MCV 84 (80-97) fL MCH 27 (27-31) pg MCHC 31 (31-36) g/dl RDW 15 (10.5-15) % Plt Count 294 (150-450) 10^3/ul MPV 7 L (7.4-10.4) um3 Neut % (Auto) 74.1 (38-83) % Lymph % (Auto) 12.7 L (25-47) % Winn % (Auto) 12.7 H (1-9) % Eos % (Auto) 0 (0-6) % Baso % (Auto) 0.5 (0-2) % Absolute Neuts (auto) 8.8 H (1.5-7.7) 10^3/ul Absolute Lymphs (auto) 1.5 (1.0-4.8) 10^3/ul Absolute Monos (auto) 1.5 H (0-0.8) 10^3/ul Absolute Eos (auto) 0 (0-0.6) 10^3/ul Absolute Basos (auto) 0.1 (0-0.2) 10^3/ul Absolute Nucleated RBC 0.01 10^3/ul Nucleated RBC % 0.1 INR (Anticoag Therapy) 1.03 (0.89-1.11) Sodium 132 L (133-145) mmol/L Potassium 4.1 (3.5-5.0) mmol/L Chloride 100 L (101-111) mmol/L Carbon Dioxide 25 (22-32) mmol/L Anion Gap 7 (2-11) mmol/L BUN 14 (6-24) mg/dL Creatinine 0.79 (0.51-0.95) mg/dL Est GFR ( Amer) 89.2 (>60) Est GFR (Non-Af Amer) 69.3 (>60) BUN/Creatinine Ratio 17.7 (8-20) Glucose 112 H (70-100) mg/dL Lactic Acid (0.5-2.0) mmol/L Calcium 8.9 (8.6-10.3) mg/dL Total Bilirubin 0.50 (0.2-1.0) mg/dL AST 26 (13-39) U/L ALT 17 (7-52) U/L Alkaline Phosphatase 152 H (34-104) U/L Troponin I 0.03 (<0.04) ng/mL C-Reactive Protein 160.94 H (< 5.00) mg/L Total Protein 7.3 (6.4-8.9) g/dL Albumin 3.2 (3.2-5.2) g/dL Globulin 4.1 H (2-4) g/dL Albumin/Globulin Ratio 0.8 L (1-3) Urine Color Urine Appearance Urine pH (5-9) Ur Specific [place] (1.010-1.030) Urine Protein (Negative) Urine Ketones (Negative) Urine Blood (Negative) Urine Nitrate (Negative) Urine Bilirubin (Negative) Urine Urobilinogen (Negative) Ur Leukocyte Esterase (Negative) Urine Glucose (Negative) Urine Ascorbic Acid (Negative) Influenza A (Rapid) (Negative) Influenza B (Rapid) (Negative) 08/12/16 08/12/1617 Range/Units 17:58 18:47 20:00 WBC (3.5-10.8) 10^3/ul RBC (4.0-5.4) 10^6/ul Hgb (12.0-16.0) g/dl Hct (35-47) % MCV (80-97) fL MCH (27-31) pg MCHC (31-36) g/dl RDW (10.5-15) % Plt Count (150-450) 10^3/ul MPV (7.4-10.4) um3 Neut % (Auto) (38-83) % Lymph % (Auto) (25-47) % Winn % (Auto) (1-9) % Eos % (Auto) (0-6) % Baso % (Auto) (0-2) % Absolute Neuts (auto) (1.5-7.7) 10^3/ul Absolute Lymphs (auto) (1.0-4.8) 10^3/ul Absolute Monos (auto) (0-0.8) 10^3/ul Absolute Eos (auto) (0-0.6) 10^3/ul Absolute Basos (auto) (0-0.2) 10^3/ul Absolute Nucleated RBC 10^3/ul Nucleated RBC % INR (Anticoag Therapy) (0.89-1.11) Sodium (133-145) mmol/L Potassium (3.5-5.0) mmol/L Chloride (101-111) mmol/L Carbon Dioxide (22-32) mmol/L Anion Gap (2-11) mmol/L BUN (6-24) mg/dL Creatinine (0.51-0.95) mg/dL Est GFR ( Amer) (>60) Est GFR (Non-Af Amer) (>60) BUN/Creatinine Ratio (8-20) Glucose (70-100) mg/dL Lactic Acid 1.0 (0.5-2.0) mmol/L Calcium (8.6-10.3) mg/dL Total Bilirubin (0.2-1.0) mg/dL AST (13-39) U/L ALT (7-52) U/L Alkaline Phosphatase (34-104) U/L Troponin I (<0.04) ng/mL C-Reactive Protein (< 5.00) mg/L Total Protein (6.4-8.9) g/dL Albumin (3.2-5.2) g/dL Globulin (2-4) g/dL Albumin/Globulin Ratio (1-3) Urine Color Yellow Urine Appearance Clear Urine pH 6.0 (5-9) Ur Specific [place] 1.017 (1.010-1.030) Urine Protein Negative (Negative) Urine Ketones Negative (Negative) Urine Blood Negative (Negative) Urine Nitrate Negative (Negative) Urine Bilirubin Negative (Negative) Urine Urobilinogen Negative (Negative) Ur Leukocyte Esterase Negative (Negative) Urine Glucose Negative (Negative) Urine Ascorbic Acid * H (Negative) Influenza A (Rapid) Negative (Negative) Influenza B (Rapid) Negative (Negative) Assess/Plan/Problems-Billing Ms Barba is an 86 yo F who has a h/o afib, dementia and GERD who presented to the ER with c/o worsened confusion and fever and was admitted as she was found to be mildly hypoxic in the ER. - Patient Problems (1) RLL pneumonia Current Visit: Yes Status: Acute Code(s): J18.1 - LOBAR PNEUMONIA, UNSPECIFIED ORGANISM SNOMED Code(s): 275503639 Comment: On CXR the patient appears to have bibasilar infiltrative change R> L. No fever-low grade temp improved. Will continue with ceftriaxone and azithromycin x1 more day then convert to oral. Her O2 sat is marginal on RA. Will recheck later today. Encourage ambualtion and getting out of bed. PT/OT-pt appears to need STR as she is quite unstable. (2) Elevated C-reactive protein (CRP) Current Visit: Yes Status: Acute Code(s): R79.82 - ELEVATED C-REACTIVE PROTEIN (CRP) SNOMED Code(s): 402427168 Comment: Appreciate rheumatology input. I have started prednisone as recommended by Dr. Roy for possible PMR. Continue prednisone 20mg daily for 5 more days then start to taper by 5mg qweek. Dr. Roy will see the patient in follow up in 1 week. (3) Anemia Current Visit: Yes Status: Acute Code(s): D64.9 - ANEMIA, UNSPECIFIED SNOMED Code(s): 160879988 Comment: Likely partially related to dilution and possibly chronic anemia secondary to chronic inflammation. Continue to monitor. (4) Afib Current Visit: Yes Status: Acute Code(s): I48.91 - UNSPECIFIED ATRIAL FIBRILLATION SNOMED Code(s): 06138093 Comment: HR is under better control with the increased dose of atenolol. Pt was taken off pradaxa recently by her PCP. Continue to hold pradaxa. (5) Dementia Current Visit: Yes Status: Acute Code(s): F03.90 - UNSPECIFIED DEMENTIA WITHOUT BEHAVIORAL DISTURBANCE SNOMED Code(s): 46516565 Comment: The patient was brought in for more confusion than usual. Today she knew she was in the hospital but she seems pleasantly confused. (6) GERD (gastroesophageal reflux disease) Current Visit: Yes Status: Acute Code(s): K21.9 - GASTRO-ESOPHAGEAL REFLUX DISEASE WITHOUT ESOPHAGITIS SNOMED Code(s): 265131998 Comment: Continue omeprazole. (7) DVT prophylaxis Current Visit: Yes Status: Acute Code(s): WQL8453 - SNOMED Code(s): 845553217 Comment: pradaxa (8) Full code status Current Visit: Yes Status: Acute Code(s): Z78.9 - OTHER SPECIFIED HEALTH STATUS SNOMED Code(s): 741486849
--- NOTE | 2016-08-14 13:38 | HP ---
HISTORY AND PHYSICAL: DATE OF ADMISSION: 08/13/16 CHIEF COMPLAINT: Fever. HISTORY OF PRESENT ILLNESS: The patient is an 86-year-old woman who was brought by her daughter for evaluation of fever she had at home. There was concern she had influenza and that she was currently on Cipro for possible UTI. However, when the patient got here, she was afebrile throughout her stay in the ER. Her workup was fairly unremarkable. Her influenza was negative, her urine was negative, and her chest x-ray was interpreted as bibasilar interstitial infiltrative changes of unknown chronicity. The patient is confused and apparently has a history of dementia so it unclear at this time how much of this is new. PAST MEDICAL HISTORY: Atrial fibrillation Pacemaker Placement GI bleed with acute blood loss anemia Dementia MEDICATIONS: Atenolol 25 mg daily Ferrous sulfate 325 mg po bid Prednisone 20 mg daily Trazodone 100 mg at bedtime ALLERGIES: NKDA FAMILY HISTORY: Unable to obtain from patient due to confusion and daughter also unavailable SOCIAL HISTORY: Unable to obtain from patient due to confusion and daughter also unavailable ROS:Unable to discuss with patient due to confusion PHYSICAL EXAM: Elderly woman lying in bed confused but in NAD Tmax 99.2 HR 117 Pulse Ox 95% on 2 liters, BP 134/81 HEENT: NC/AT MMM Neck: Supple no JVD, No bruits, no palpable thyroid Chest: CTA CV: S1S2 federico ABD exam: + BS soft NT/ND Ext: No C/C/E + 2 pp b/l Neuro: A + O x 1, DORADO. no facial droop, no slurred speech DATA:WBC 11.9, hgb 10.8, HCT 35, PLT 294, Na 132, K 4.1, Chl 100, Hco3 25, BUN 14, Cr 0.79 Glucose 112 CRP 160.94, Trop 0.03 U/A neg, Influenza A + B neg EKG: Afib with RVR Chest X-ray: Bi-basilar interstitial infiltrates of unknown chronicity ABD US: Cholecystectomy. Mild ductal dilation. ASSESSMENT AND PLAN: 1. The patient may have pneumonia. I placed her on Rocephin and Zithromax. We will see if this helps her need for supplemental O2 as she is slightly hypoxic. 2. Atrial fibrillation. Her heart rate is somewhat high, may need adjustment of her atenolol. 3. Dementia. I do not know if she is any more confused than normal, she is probably at her baseline, monitor. 4. Gastroesophageal reflux disease. Continue current medications. 5. FEN. Regular diet. 6. DVT prophylaxis. She is on Pradaxa. 7. The patient is a full code. TIME SPENT: Over 80 minutes was spent on this H and P; more than 45 minutes was in [id number] contact with the patient in evaluation, physical exam, counseling, and coordination of care. CC: Dr. Deirdre Allred * [id number]/CPS #: [id number]
[2016-08-14] MEDS: traZODone TAB* 100 MG PO SCH (21:56)
[2016-08-15] MEDS: cefTRIAXone VIAL(*) 1,000 MG in NS 0.9% 50 ML* 50 ML IVPB SCH (05:08)
[2016-08-15] MEDS: Azithromycin IV(*) 500 MG in NS 0.9% 250 ML* 250 ML IVPB SCH (05:50)
[2016-08-15] MEDS: Cholecalciferol TAB* 1000 UNITS PO SCH (09:23)
[2016-08-15] MEDS: predniSONE TAB* 20 MG PO SCH (09:23)
[2016-08-15] MEDS: Ferrous Sulfate TAB* 325 MG PO SCH ×2 (09:23→21:28)
[2016-08-15] MEDS: Omeprazole CAP* 20 MG PO SCH (09:23)
[2016-08-15] MEDS: Multivitamins/Minera Areds(NF) 1 CAP CAP PO SCH ×2 (09:23→21:44)
[2016-08-15] MEDS: Atenolol TAB* 25 MG PO SCH (09:23)
--- NOTE | 2016-08-15 10:34 | PN ---
Subjective Date of Service: 08/15/16 Interval History: Pt is feeling well. She denies any pain or SOB. She states she has not been out of bed yet. Objective Active Medications: Atenolol (Tenormin Tab*) 25 mg PO DAILY [facility] Last Admin: 08/15/16 09:23 Dose: 25 mg Azithromycin (Zithromax Tab*) 500 mg PO DAILY [facility] Benzonatate (Tessalon Cap*) 200 mg PO TID PRN PRN Reason: COUGH Cholecalciferol (Vitamin D Tab*) 1,000 units PO DAILY [facility] Last Admin: 08/15/16 09:23 Dose: 1,000 units Ferrous Sulfate (Ferrous Sulfate Tab*) 325 mg PO BID [facility] Last Admin: 08/15/16 09:23 Dose: 325 mg Multivitamins/Minerals (Preservision Areds(Multivitamins/Mineral)(Nf)) 1 cap PO BID [facility] Last Admin: 08/15/16 09:23 Dose: Not Given Omeprazole (Prilosec Cap*) 20 mg PO DAILY [facility] Last Admin: 08/15/16 09:23 Dose: 20 mg Prednisone (Deltasone Tab*) 20 mg PO DAILY [facility] Last Admin: 08/15/16 09:23 Dose: 20 mg Trazodone HCl (Desyrel Tab*) 100 mg PO BEDTIME [facility] Last Admin: 08/14/16 21:56 Dose: 100 mg Vital Signs 08/14/16 08/14/16 08/14/16 11:46 15:29 20:00 Temperature 98.1 F Pulse Rate 83 85 Respiratory 18 18 Rate Blood Pressure 119/51 (mmHg) O2 Sat by Pulse 94 94 94 Oximetry 08/14/16 08/15/16 23:30 07:19 Temperature 97.3 F Pulse Rate 78 78 Respiratory 19 17 Rate Blood Pressure 106/47 113/54 (mmHg) O2 Sat by Pulse 96 92 Oximetry Oxygen Devices in Use Now: Nasal Cannula - 2L-93% Appearance: Elderly female sitting up in bed, NAD Eyes: No Scleral Icterus Ears/Nose/Mouth/Throat: Mucous Membranes Moist Respiratory: Symmetrical Chest Expansion and Respiratory Effort, Clear to Auscultation Cardiovascular: NL Sounds; No Murmurs; No JVD, No Edema, - - irregularly irregular, controlled rate Abdominal: NL Sounds; No Tenderness; No Distention Extremities: No Clubbing, Cyanosis Skin: No Rash or Ulcers, No Nodules or Sclerosis Neurological: - - alert, pleasantly confused Result Diagrams: 08/14/16 07:52 08/14/16 07:52 Additional Lab and Data: Lab Results 08/12/16 08/12/16 08/12/16 Range/Units 17:50 17:58 17:58 WBC 11.9 H (3.5-10.8) 10^3/ul RBC 4.09 (4.0-5.4) 10^6/ul Hgb 10.8 L (12.0-16.0) g/dl Hct 35 (35-47) % MCV 84 (80-97) fL MCH 27 (27-31) pg MCHC 31 (31-36) g/dl RDW 15 (10.5-15) % Plt Count 294 (150-450) 10^3/ul MPV 7 L (7.4-10.4) um3 Neut % (Auto) 74.1 (38-83) % Lymph % (Auto) 12.7 L (25-47) % [place] % (Auto) 12.7 H (1-9) % Eos % (Auto) 0 (0-6) % Baso % (Auto) 0.5 (0-2) % Absolute Neuts (auto) 8.8 H (1.5-7.7) 10^3/ul Absolute Lymphs (auto) 1.5 (1.0-4.8) 10^3/ul Absolute Monos (auto) 1.5 H (0-0.8) 10^3/ul Absolute Eos (auto) 0 (0-0.6) 10^3/ul Absolute Basos (auto) 0.1 (0-0.2) 10^3/ul Absolute Nucleated RBC 0.01 10^3/ul Nucleated RBC % 0.1 INR (Anticoag Therapy) 1.03 (0.89-1.11) Sodium 132 L (133-145) mmol/L Potassium 4.1 (3.5-5.0) mmol/L Chloride 100 L (101-111) mmol/L Carbon Dioxide 25 (22-32) mmol/L Anion Gap 7 (2-11) mmol/L BUN 14 (6-24) mg/dL Creatinine 0.79 (0.51-0.95) mg/dL Est GFR ( Amer) 89.2 (>60) Est GFR (Non-Af Amer) 69.3 (>60) BUN/Creatinine Ratio 17.7 (8-20) Glucose 112 H (70-100) mg/dL Lactic Acid (0.5-2.0) mmol/L Calcium 8.9 (8.6-10.3) mg/dL Total Bilirubin 0.50 (0.2-1.0) mg/dL AST 26 (13-39) U/L ALT 17 (7-52) U/L Alkaline Phosphatase 152 H (34-104) U/L Troponin I 0.03 (<0.04) ng/mL C-Reactive Protein 160.94 H (< 5.00) mg/L Total Protein 7.3 (6.4-8.9) g/dL Albumin 3.2 (3.2-5.2) g/dL Globulin 4.1 H (2-4) g/dL Albumin/Globulin Ratio 0.8 L (1-3) Urine Color Urine Appearance Urine pH (5-9) Ur Specific [place] (1.010-1.030) Urine Protein (Negative) Urine Ketones (Negative) Urine Blood (Negative) Urine Nitrate (Negative) Urine Bilirubin (Negative) Urine Urobilinogen (Negative) Ur Leukocyte Esterase (Negative) Urine Glucose (Negative) Urine Ascorbic Acid (Negative) Influenza A (Rapid) (Negative) Influenza B (Rapid) (Negative) 08/12/16 08/12/16 08/12/16 Range/Units 17:58 18:47 20:00 WBC (3.5-10.8) 10^3/ul RBC (4.0-5.4) 10^6/ul Hgb (12.0-16.0) g/dl Hct (35-47) % MCV (80-97) fL MCH (27-31) pg MCHC (31-36) g/dl RDW (10.5-15) % Plt Count (150-450) 10^3/ul MPV (7.4-10.4) um3 Neut % (Auto) (38-83) % Lymph % (Auto) (25-47) % [place] % (Auto) (1-9) % Eos % (Auto) (0-6) % Baso % (Auto) (0-2) % Absolute Neuts (auto) (1.5-7.7) 10^3/ul Absolute Lymphs (auto) (1.0-4.8) 10^3/ul Absolute Monos (auto) (0-0.8) 10^3/ul Absolute Eos (auto) (0-0.6) 10^3/ul Absolute Basos (auto) (0-0.2) 10^3/ul Absolute Nucleated RBC 10^3/ul Nucleated RBC % INR (Anticoag Therapy) (0.89-1.11) Sodium (133-145) mmol/L Potassium (3.5-5.0) mmol/L Chloride (101-111) mmol/L Carbon Dioxide (22-32) mmol/L Anion Gap (2-11) mmol/L BUN (6-24) mg/dL Creatinine (0.51-0.95) mg/dL Est GFR ( Amer) (>60) Est GFR (Non-Af Amer) (>60) BUN/Creatinine Ratio (8-20) Glucose (70-100) mg/dL Lactic Acid 1.0 (0.5-2.0) mmol/L Calcium (8.6-10.3) mg/dL Total Bilirubin (0.2-1.0) mg/dL AST (13-39) U/L ALT (7-52) U/L Alkaline Phosphatase (34-104) U/L Troponin I (<0.04) ng/mL C-Reactive Protein (< 5.00) mg/L Total Protein (6.4-8.9) g/dL Albumin (3.2-5.2) g/dL Globulin (2-4) g/dL Albumin/Globulin Ratio (1-3) Urine Color Yellow Urine Appearance Clear Urine pH 6.0 (5-9) Ur Specific [place] 1.017 (1.010-1.030) Urine Protein Negative (Negative) Urine Ketones Negative (Negative) Urine Blood Negative (Negative) Urine Nitrate Negative (Negative) Urine Bilirubin Negative (Negative) Urine Urobilinogen Negative (Negative) Ur Leukocyte Esterase Negative (Negative) Urine Glucose Negative (Negative) Urine Ascorbic Acid * H (Negative) Influenza A (Rapid) Negative (Negative) Influenza B (Rapid) Negative (Negative) Assess/Plan/Problems-Billing Ms Barba is an 86 yo F who has a h/o afib, dementia and GERD who presented to the ER with c/o worsened confusion and fever and was admitted as she was found to be mildly hypoxic in the ER. - Patient Problems (1) RLL pneumonia Current Visit: Yes Status: Acute Code(s): J18.1 - LOBAR PNEUMONIA, UNSPECIFIED ORGANISM SNOMED Code(s): 934939572 Comment: On CXR the patient appears to have bibasilar infiltrative change R> L. Will continue with azithromycin alone for treatment of possible pna. Will complete 3 more days of therapy. (2) Elevated C-reactive protein (CRP) Current Visit: Yes Status: Acute Code(s): R79.82 - ELEVATED C-REACTIVE PROTEIN (CRP) SNOMED Code(s): 511772035 Comment: Pt states she feels less pain in her shoulders/hips. Continue prednisone 20mg daily x4 more days then decrease to 15mg daily x1 week. She should follow up with Dr. Roy in about 1 week. Continue PT-she needs STR. (3) Anemia Current Visit: Yes Status: Acute Code(s): D64.9 - ANEMIA, UNSPECIFIED SNOMED Code(s): 078147509 Comment: Likely partially related to dilution and possibly chronic anemia secondary to chronic inflammation. Continue to monitor. (4) Afib Current Visit: Yes Status: Acute Code(s): I48.91 - UNSPECIFIED ATRIAL FIBRILLATION SNOMED Code(s): 03923408 Comment: HR is under good control. Continue current dose of atenolol. (5) Dementia Current Visit: Yes Status: Acute Code(s): F03.90 - UNSPECIFIED DEMENTIA WITHOUT BEHAVIORAL DISTURBANCE SNOMED Code(s): 05357430 Comment: Pt remains pleasantly confused. (6) GERD (gastroesophageal reflux disease) Current Visit: Yes Status: Acute Code(s): K21.9 - GASTRO-ESOPHAGEAL REFLUX DISEASE WITHOUT ESOPHAGITIS SNOMED Code(s): 663255674 Comment: Continue omeprazole. (7) DVT prophylaxis Current Visit: Yes Status: Acute Code(s): [id number] - SNOMED Code(s): 432333607 Comment: SQ heparin (8) Full code status Current Visit: Yes Status: Acute Code(s): Z78.9 - OTHER SPECIFIED HEALTH STATUS SNOMED Code(s): 770951642
[2016-08-15] MEDS: Heparin VIAL(*) 5000 UNITS/ML VIAL (FIVE THOUSAND) SUBCUT SCH ×2 (14:34→21:28)
--- NOTE | 2016-08-15 17:27 | PN ---
Subjective - Subjective Active Problems: Active Problems Afib (Acute) I48.91 HR is under good control. Continue current dose of atenolol. Anemia (Acute) D64.9 Likely partially related to dilution and possibly chronic anemia secondary to chronic inflammation. Continue to monitor. DVT prophylaxis (Acute) [id number] SQ heparin Dementia (Acute) F03.90 Pt remains pleasantly confused. Elevated C-reactive protein (CRP) (Acute) R79.82 Pt states she feels less pain in her shoulders/hips. Continue prednisone 20mg daily x4 more days then decrease to 15mg daily x1 week. She should follow up with Dr. Roy in about 1 week. Continue PT-she needs STR. Full code status (Acute) Z78.9 GERD (gastroesophageal reflux disease) (Acute) K21.9 Continue omeprazole. RLL pneumonia (Acute) J18.1 On CXR the patient appears to have bibasilar infiltrative change R>L. Will continue with azithromycin alone for treatment of possible pna. Will complete 3 more days of therapy. Current Medications: Current Medications Atenolol (Tenormin Tab*) 25 mg PO DAILY [facility] Last Admin: 08/15/16 09:23 Dose: 25 mg Azithromycin (Zithromax Tab*) 500 mg PO DAILY [facility] Benzonatate (Tessalon Cap*) 200 mg PO TID PRN PRN Reason: COUGH Cholecalciferol (Vitamin D Tab*) 1,000 units PO DAILY [facility] Last Admin: 08/15/16 09:23 Dose: 1,000 units Ferrous Sulfate (Ferrous Sulfate Tab*) 325 mg PO BID [facility] Last Admin: 08/15/16 09:23 Dose: 325 mg Heparin Sodium (Porcine) (Heparin Vial(*)) 5,000 units SUBCUT Q8HR [facility] Last Admin: 08/15/16 14:34 Dose: 5,000 units Multivitamins/Minerals (Preservision Areds(Multivitamins/Mineral)(Nf)) 1 cap PO BID [facility] Last Admin: 08/15/16 09:23 Dose: Not Given Omeprazole (Prilosec Cap*) 20 mg PO DAILY [facility] Last Admin: 08/15/16 09:23 Dose: 20 mg Prednisone (Deltasone Tab*) 20 mg PO DAILY [facility] Last Admin: 08/15/16 09:23 Dose: 20 mg Trazodone HCl (Desyrel Tab*) 100 mg PO BEDTIME [facility] Last Admin: 08/14/16 21:56 Dose: 100 mg - Review of Systems General Comments: Elevated ESR, CRP Dementia Pneumonia Probable PMR Overall she is feeling well with no complaints. Continue gradual steroid taper. Constitutional Symptoms: No: Weight Gain, Weight Loss, Unexplained Falls Pulmonary: Positive: Normal Cardiology: Positive: Normal Gastroenterology: Positive: Normal Hematologic/Lymphatic: Positive: Anemia Neurology: Positive: Change in Memory Home Medications: Home Medications Medication Instructions Recorded Confirmed Type Ascorbic Acid [Vitamin C] 500 mg PO DAILY 12/04/15 08/13/16 History Calcium Carbonate-Cholecalcife 1 tab PO BID 12/04/15 08/13/16 History [Calcium 500 +D3 500-600 mg-Unit] Cholecalciferol [Vitamin D3] 1,000 unit PO DAILY 12/04/15 08/13/16 History Cranberry-Vitamin C-Probiotic [Azo 1 tab PO BID 12/04/15 08/13/16 History Cranberry 250-30 mg] Ferrous Sulfate TAB* 325 mg PO BID 12/04/15 08/13/16 History Multiple Vitamins W/ Minerals 1 pow PO DAILY 12/04/15 08/13/16 History [Centrum Multivitamin Flav] Multiple Vitamins W/ Minerals 1 cap PO BID 12/04/15 08/13/16 History [[facility] Formul] traZODone TAB* [Desyrel TAB*] 100 mg PO BEDTIME 12/04/15 08/13/16 History Atenolol TAB* [Tenormin TAB* 25 MG] 0.5 tab PO DAILY 07/22/16 08/13/16 History Furosemide TAB* [Lasix TAB*] 20 mg PO SEE INSTRUCTIONS 07/22/16 08/13/16 History Omeprazole CAP* [Prilosec CAP* 20 20 mg PO DAILY 08/13/16 08/13/16 History MG] Allergies: Allergies Allergy/AdvReac Type Severity Reaction Status Date / Time No Known Allergies Allergy Verified 07/22/16 15:53 Objective - Vital Signs Vital Signs: Vital Signs 08/14/16 08/14/16 08/15/16 20:00 23:30 07:19 Temperature 97.3 F Pulse Rate 78 78 Respiratory 18 19 17 Rate Blood Pressure 106/47 113/54 (mmHg) O2 Sat by Pulse 94 96 92 Oximetry 08/15/16 08/15/16 08:00 15:22 Temperature 98.1 F Pulse Rate 68 Respiratory 16 14 Rate Blood Pressure 104/50 (mmHg) O2 Sat by Pulse 92 91 Oximetry - Intake and Output Intake and Output: Intake & Output 08/13/16 08/14/16 08/15/16 08/16/16 06:59 06:59 06:59 06:59 Intake Total 2951 2312 560 Balance 2951 2312 560 Intake: IV Fluids 2039 881 ABX - AZITHROMYCIN 275 ABX - CEFTRIAXONE 65 NS (0.9%) 1339 50 IVPB 512 621 ABX - AZITHROMYCIN 250 ABX - CEFTRIAXONE 65 NS (0.9%) 556 Oral 400 810 560 Other: Estimated Void Large Large Medium # Bowel Movements 0 # Voids 1 1 ADLs: Meal Record Start: 08/13/16 05: 38 Freq: DAILY@0900,1400,1800 Status: Active Created 08/13/16 05:38 System (Rec: 08/13/16 05:38 System MED-C16) Document 08/13/16 09:00 [id number] (Rec: 08/13/16 10:15 [id number] MED-C09) Document 08/13/16 13:52 [id number] (Rec: 08/13/16 14:31 [id number] MED-C09) Document 08/14/16 14:00 [id number] (Rec: 08/14/16 15:15 [id number] MED-C11) Document 08/14/16 18:00 [id number] (Rec: 08/14/16 18:42 [id number] MED-C11) Document 08/15/16 09:00 [id number] (Rec: 08/15/16 15:21 [id number] MED-C09) Intake and Output Start: 08/13/16 05: 38 Freq: DAILY@0600,1400,2200 Status: Active Created 08/13/16 05:38 System (Rec: 08/13/16 05:38 System MED-C16) Document 08/13/16 13:52 [id number] (Rec: 08/13/16 14:31 [id number] MED-C09) Document 08/13/16 22:00 [id number] (Rec: 08/13/16 22:36 [id number] MED-C11) Document 08/14/16 05:16 [id number] (Rec: 08/14/16 05:16 [id number] MED-C26) Document 08/14/16 22:00 [id number] (Rec: 08/14/16 23:04 [id number] MEDL-C01) Document 08/15/16 05:19 [id number] (Rec: 08/15/16 05:19 [id number] MED-C42) Document 08/15/16 14:00 [id number] (Rec: 08/15/16 15:32 [id number] MED-C09) - Physical Exam General Physical Exam Comment: No acute distress Eye Exam: bilateral: PERRLA Thyroid Function: Clinically Euthyroid Lungs and Chest: Yes: Chest Expansion Full, Chest Expansion Symetrica Heart Rate and Rhythm: Irregular Abdominal Exam: Yes: Soft - Rheumotological System Joints: Range of Motion - No synovitis or warmth of joints - Extremities Posterior Tibial Pulse: Bilateral Normal Limbs: Abnormal Power - Neuro Speech: Normal Assessment - Problem List Assessment: Patient Problems Afib (Acute) Anemia (Acute) DVT prophylaxis (Acute) Dementia (Acute) Elevated C-reactive protein (CRP) (Acute) Full code status (Acute) GERD (gastroesophageal reflux disease) (Acute) RLL pneumonia (Acute) Plan: Probable PMR: overall doing well; continue gradual steroid taper. Elevated inflammatory markers: also completing antibiotic course. Elevated alk phos: can be followed as an outpatient Anemia: may improve with reducing inflammation
[2016-08-15] MEDS: traZODone TAB* 100 MG PO SCH (21:28)
[2016-08-16] MEDS: Heparin VIAL(*) 5000 UNITS/ML VIAL (FIVE THOUSAND) SUBCUT SCH ×3 (05:23→21:47)
[2016-08-16 05:34] LABS: Hematocrit 29 % (35-47); Hemoglobin 9.2 g/dl (12.0-16.0); Mean Corpuscular HGB Conc 32 g/dl (31-36); Mean Corpuscular Hemoglobin 26 pg (27-31); Mean Corpuscular Volume 83 fL (80-97); Mean Platelet Volume 7 um3 (7.4-10.4); Red Cell Distribution Width 15 % (10.5-15); White Blood Count 7.1 10^3/ul (3.5-10.8)
[2016-08-16] MEDS: Multivitamins/Minera Areds(NF) 1 CAP CAP PO SCH (08:40)
[2016-08-16] MEDS ORDERED: Azithromycin TAB* 250 MG PO SCH (09:00)
--- NOTE | 2016-08-16 09:55 | RAD ---
Indication: Code Cruz. CT of the brain was performed without IV contrast. Ventricular structures are midline. No midline shift is noted. The extraction spaces are unremarkable. There is no evidence of intracranial mass or hemorrhage. There are 2 small areas of hypodensity consistent with chronic ischemic White matter change. No other high or low density lesions are identified. When compared to previous exam of December 04, 2015 no significant change is noted. Bony calvaria, mastoid air cells and paranasal sinuses are grossly unremarkable. IMPRESSION: No intracranial mass or hemorrhage. Age-related atrophy unchanged from previous exam. Mild chronic ischemic White matter change is noted. Ernestine the nurse on [address]. was notified of results at 9:51 AM
[2016-08-16] MEDS ORDERED: Aspirin SUPP* 300 MG PR ONE (09:58)
--- NOTE | 2016-08-16 10:29 | PN ---
Subjective Date of Service: 08/16/16 Interval History: I was alerted by the patient's nurse that she appeared to be speaking only out of the R side of her mouth and that her speech was difficult to understand. When I went to evaluate the patient she was found much more somnolent than previous and required sternal rub to awaken. When she spoke it was clear she had a left facial droop and that she was dysarthric. She would not answer any of my questions. Objective Active Medications: Atenolol (Tenormin Tab*) 25 mg PO DAILY [facility] Last Admin: 08/15/16 09:23 Dose: 25 mg Azithromycin (Zithromax Tab*) 500 mg PO DAILY [facility] Benzonatate (Tessalon Cap*) 200 mg PO TID PRN PRN Reason: COUGH Cholecalciferol (Vitamin D Tab*) 1,000 units PO DAILY [facility] Last Admin: 08/15/16 09:23 Dose: 1,000 units Ferrous Sulfate (Ferrous Sulfate Tab*) 325 mg PO BID [facility] Last Admin: 08/15/16 21:28 Dose: 325 mg Heparin Sodium (Porcine) (Heparin Vial(*)) 5,000 units SUBCUT Q8HR [facility] Last Admin: 08/16/16 05:23 Dose: 5,000 units Multivitamins/Minerals (Preservision Areds(Multivitamins/Mineral)(Nf)) 1 cap PO BID [facility] Last Admin: 08/16/16 08:40 Dose: Not Given Omeprazole (Prilosec Cap*) 20 mg PO DAILY [facility] Last Admin: 08/15/16 09:23 Dose: 20 mg Prednisone (Deltasone Tab*) 20 mg PO DAILY [facility] Last Admin: 08/15/16 09:23 Dose: 20 mg Trazodone HCl (Desyrel Tab*) 100 mg PO BEDTIME [facility] Last Admin: 08/15/16 21:28 Dose: 100 mg Vital Signs 08/15/16 08/15/16 08/15/16 15:22 20:00 23:35 Temperature 98.1 F 98.0 F Pulse Rate 68 76 Respiratory 14 14 Rate Blood Pressure 104/50 132/61 (mmHg) O2 Sat by Pulse 91 92 95 Oximetry 08/16/16 08/16/16 07:37 08:00 Temperature 97.3 F Pulse Rate 89 Respiratory 20 16 Rate Blood Pressure 133/72 (mmHg) O2 Sat by Pulse 97 97 Oximetry Oxygen Devices in Use Now: Nasal Cannula - 97%-2L Appearance: Elderly female lying in bed, sleeping, slightly difficult to arouse but in NAD Eyes: No Scleral Icterus, - - eyes deviated to R-would not look past midline Ears/Nose/Mouth/Throat: Mucous Membranes Moist Respiratory: Symmetrical Chest Expansion and Respiratory Effort, - - RLL,RML fine crackles Cardiovascular: NL Sounds; No Murmurs; No JVD, No Edema, - - irregularly irregular Abdominal: NL Sounds; No Tenderness; No Distention Extremities: No Clubbing, Cyanosis Skin: No Rash or Ulcers, No Nodules or Sclerosis Neurological: - - somnolent but arousable, R gaze preference, L facial droop, markedly dysarthric speech, does not follow commands routinely, UE strength bilaterally is strong though she does not fully cooperate with exam Result Diagrams: 08/16/16 05:22 08/14/16 07:52 Additional Lab and Data: Lab Results 08/12/16 08/12/16 08/12/16 Range/Units 17:50 17:58 17:58 WBC 11.9 H (3.5-10.8) 10^3/ul RBC 4.09 (4.0-5.4) 10^6/ul Hgb 10.8 L (12.0-16.0) g/dl Hct 35 (35-47) % MCV 84 (80-97) fL MCH 27 (27-31) pg MCHC 31 (31-36) g/dl RDW 15 (10.5-15) % Plt Count 294 (150-450) 10^3/ul MPV 7 L (7.4-10.4) um3 Neut % (Auto) 74.1 (38-83) % Lymph % (Auto) 12.7 L (25-47) % [place] % (Auto) 12.7 H (1-9) % Eos % (Auto) 0 (0-6) % Baso % (Auto) 0.5 (0-2) % Absolute Neuts (auto) 8.8 H (1.5-7.7) 10^3/ul Absolute Lymphs (auto) 1.5 (1.0-4.8) 10^3/ul Absolute Monos (auto) 1.5 H (0-0.8) 10^3/ul Absolute Eos (auto) 0 (0-0.6) 10^3/ul Absolute Basos (auto) 0.1 (0-0.2) 10^3/ul Absolute Nucleated RBC 0.01 10^3/ul Nucleated RBC % 0.1 INR (Anticoag Therapy) 1.03 (0.89-1.11) Sodium 132 L (133-145) mmol/L Potassium 4.1 (3.5-5.0) mmol/L Chloride 100 L (101-111) mmol/L Carbon Dioxide 25 (22-32) mmol/L Anion Gap 7 (2-11) mmol/L BUN 14 (6-24) mg/dL Creatinine 0.79 (0.51-0.95) mg/dL Est GFR ( Amer) 89.2 (>60) Est GFR (Non-Af Amer) 69.3 (>60) BUN/Creatinine Ratio 17.7 (8-20) Glucose 112 H (70-100) mg/dL Lactic Acid (0.5-2.0) mmol/L Calcium 8.9 (8.6-10.3) mg/dL Total Bilirubin 0.50 (0.2-1.0) mg/dL AST 26 (13-39) U/L ALT 17 (7-52) U/L Alkaline Phosphatase 152 H (34-104) U/L Troponin I 0.03 (<0.04) ng/mL C-Reactive Protein 160.94 H (< 5.00) mg/L Total Protein 7.3 (6.4-8.9) g/dL Albumin 3.2 (3.2-5.2) g/dL Globulin 4.1 H (2-4) g/dL Albumin/Globulin Ratio 0.8 L (1-3) Urine Color Urine Appearance Urine pH (5-9) Ur Specific [place] (1.010-1.030) Urine Protein (Negative) Urine Ketones (Negative) Urine Blood (Negative) Urine Nitrate (Negative) Urine Bilirubin (Negative) Urine Urobilinogen (Negative) Ur Leukocyte Esterase (Negative) Urine Glucose (Negative) Urine Ascorbic Acid (Negative) Influenza A (Rapid) (Negative) Influenza B (Rapid) (Negative) 08/12/16 08/12/16 08/12/16 Range/Units 17:58 18:47 20:00 WBC (3.5-10.8) 10^3/ul RBC (4.0-5.4) 10^6/ul Hgb (12.0-16.0) g/dl Hct (35-47) % MCV (80-97) fL MCH (27-31) pg MCHC (31-36) g/dl RDW (10.5-15) % Plt Count (150-450) 10^3/ul MPV (7.4-10.4) um3 Neut % (Auto) (38-83) % Lymph % (Auto) (25-47) % [place] % (Auto) (1-9) % Eos % (Auto) (0-6) % Baso % (Auto) (0-2) % Absolute Neuts (auto) (1.5-7.7) 10^3/ul Absolute Lymphs (auto) (1.0-4.8) 10^3/ul Absolute Monos (auto) (0-0.8) 10^3/ul Absolute Eos (auto) (0-0.6) 10^3/ul Absolute Basos (auto) (0-0.2) 10^3/ul Absolute Nucleated RBC 10^3/ul Nucleated RBC % INR (Anticoag Therapy) (0.89-1.11) Sodium (133-145) mmol/L Potassium (3.5-5.0) mmol/L Chloride (101-111) mmol/L Carbon Dioxide (22-32) mmol/L Anion Gap (2-11) mmol/L BUN (6-24) mg/dL Creatinine (0.51-0.95) mg/dL Est GFR ( Amer) (>60) Est GFR (Non-Af Amer) (>60) BUN/Creatinine Ratio (8-20) Glucose (70-100) mg/dL Lactic Acid 1.0 (0.5-2.0) mmol/L Calcium (8.6-10.3) mg/dL Total Bilirubin (0.2-1.0) mg/dL AST (13-39) U/L ALT (7-52) U/L Alkaline Phosphatase (34-104) U/L Troponin I (<0.04) ng/mL C-Reactive Protein (< 5.00) mg/L Total Protein (6.4-8.9) g/dL Albumin (3.2-5.2) g/dL Globulin (2-4) g/dL Albumin/Globulin Ratio (1-3) Urine Color Yellow Urine Appearance Clear Urine pH 6.0 (5-9) Ur Specific [place] 1.017 (1.010-1.030) Urine Protein Negative (Negative) Urine Ketones Negative (Negative) Urine Blood Negative (Negative) Urine Nitrate Negative (Negative) Urine Bilirubin Negative (Negative) Urine Urobilinogen Negative (Negative) Ur Leukocyte Esterase Negative (Negative) Urine Glucose Negative (Negative) Urine Ascorbic Acid * H (Negative) Influenza A (Rapid) Negative (Negative) Influenza B (Rapid) Negative (Negative) Assess/Plan/Problems-Billing Ms Barba is an 86 yo F who has a h/o afib, dementia and GERD who presented to the ER with c/o worsened confusion and fever and was admitted as she was found to be mildly hypoxic in the ER. - Patient Problems (1) Acute cerebrovascular accident (CVA) Current Visit: Yes Status: Acute Code(s): I63.9 - CEREBRAL INFARCTION, UNSPECIFIED SNOMED Code(s): 413621646 Comment: This morning at approximately 0925 the patient was found to have a L facial droop and be dysarthric. Much different from prior. Code leonarda called. Pt taken immediately to CT where no bleed was identified. She has a h/o afib and I suspect her CVA is secondary to that. Dr. Abad evaluated the patient and felt she was too risky for tPA given likely GI bleed identified just about 3 weeks ago and the fact that she was likely seen normal last ~3hr prior. Will give ASA 300mg WV x1 now and obtain a swallow eval. PT/OT. Plan will still be for STR when she recovers. She will get an EEG as seizure is a potential cause for her current symptoms. (2) RLL pneumonia Current Visit: Yes Status: Acute Code(s): J18.1 - LOBAR PNEUMONIA, UNSPECIFIED ORGANISM SNOMED Code(s): 821765685 Comment: Will complete 2 more days of therapy. Wean O2 if able. (3) Elevated C-reactive protein (CRP) Current Visit: Yes Status: Acute Code(s): R79.82 - ELEVATED C-REACTIVE PROTEIN (CRP) SNOMED Code(s): 930133251 Comment: Continue prednisone for presumed PMR. Follow up with Dr. Roy in about 1 week. If she can not take oral prednisone will change to solumedrol. (4) Anemia Current Visit: Yes Status: Acute Code(s): D64.9 - ANEMIA, UNSPECIFIED SNOMED Code(s): 589251823 Comment: H/H stable. Continue to follow intermittently. (5) Afib Current Visit: Yes Status: Acute Code(s): I48.91 - UNSPECIFIED ATRIAL FIBRILLATION SNOMED Code(s): 67231040 Comment: HR is under good control. Continue current dose of atenolol-if unable to take oral meds will start IV metoprolol. (6) Dementia Current Visit: Yes Status: Acute Code(s): F03.90 - UNSPECIFIED DEMENTIA WITHOUT BEHAVIORAL DISTURBANCE SNOMED Code(s): 06311035 Comment: Mental status now markedly altered. Follow as above. (7) GERD (gastroesophageal reflux disease) Current Visit: Yes Status: Acute Code(s): K21.9 - GASTRO-ESOPHAGEAL REFLUX DISEASE WITHOUT ESOPHAGITIS SNOMED Code(s): 404445990 Comment: Continue omeprazole. (8) DVT prophylaxis Current Visit: Yes Status: Acute Code(s): MCB0838 - SNOMED Code(s): 970771502 Comment: SQ heparin (9) Full code status Current Visit: Yes Status: Acute Code(s): Z78.9 - OTHER SPECIFIED HEALTH STATUS SNOMED Code(s): 231107987
[2016-08-16 10:36] LABS: Albumin 2.4 g/dL (3.2-5.2); BUN/Creatinine Ratio 26.6 (8-20); Calcium 7.9 mg/dL (8.6-10.3); EGFR African American 113.7 (>60); EGFR Non-African American 88.4 (>60); Globulin 3.6 g/dL (2-4); Potassium 3.5 mmol/L (3.5-5.0); Total Bilirubin 0.2 mg/dL (0.2-1.0)
[2016-08-16] MEDS ORDERED: levETIRAcetam IV* 1,000 MG in NS 0.9% 100 ML* 100 ML IVPB SCH (14:00)
[2016-08-16] MEDS ORDERED: Iohexol 350* (CONTRAST) 500 ML MDV IV ONE (14:12)
--- NOTE | 2016-08-16 14:55 | RAD ---
HISTORY: Stroke COMPARISONS: None TECHNIQUE: Multiple transverse and longitudinal ultrasound images were obtained of the carotid and vertebral arteries bilaterally, using grayscale, color Doppler, and spectral Doppler imaging. FINDINGS: Measurement of carotid stenosis is based on flow velocity parameters that correlate the residual internal carotid artery diameter with [place] Symptomatic Carotid Endarterectomy Trial (NASCET)-based stenosis levels. RIGHT: Intima: There is diffuse intimal thickening with minimal focal atheroma formation at the bifurcation. Velocities: Right internal carotid artery maximum peak systolic velocity: 65 cm/s Right common carotid artery maximum peak systolic velocity: 72 cm/s Right internal carotid artery/common carotid artery ratio: 0.9 Waveforms: There is no spectral broadening. Right Vertebral: The right vertebral artery flow is antegrade. LEFT: Intima: There is mild diffuse intimal thickening. Velocities: Left internal carotid artery maximum peak systolic velocity: 75 cm/s Left common carotid artery maximum peak systolic velocity: 75 cm/s Left internal carotid artery/common carotid artery ratio: 0.9 Waveforms: There is no spectral broadening. Left Vertebral: The left vertebral artery flow is antegrade. OTHER FINDINGS: None. IMPRESSION: 1. NO HEMODYNAMICALLY SIGNIFICANT STENOSIS OF THE RIGHT INTERNAL CAROTID ARTERY BY FLOW VELOCITY MEASUREMENTS. THIS CORRESPONDS TO A LUMINAL DIAMETER OF LESS THAN 50% STENOSIS BY NASCET CRITERIA. 2. NO HEMODYNAMICALLY SIGNIFICANT STENOSIS OF THE LEFT INTERNAL CAROTID ARTERY BY FLOW VELOCITY MEASUREMENTS. THIS CORRESPONDS TO A LUMINAL DIAMETER OF LESS THAN 50% STENOSIS BY NASCET CRITERIA. CPT II Codes: 3100F
--- NOTE | 2016-08-16 15:52 | ECHO ---
Patient: DANAE SANTILLAN [facility] Rec#: [id number] : 1930 Date: 08/16/2016 Age: 86y Height: 167.64 cm / 66.0 in Weight: 59.87 kg / 132.0 lbs Sex: F BSA: 1.68 Room#: 437 Admit Date#: 08/13/2016 Type: Inpatient Referring: Sosa Savage DO Reading: Joe Moore MD Gem Expert: Eric Billings RDCS CC: Paulo Mckeon MD Transthoracic Echocardiogram Indication: CVA BP: 133/72 HR: 73 Rhythm: A-Fib Findings History: A.FIB,GERD,pneuminia,dermentia.. Technical Comments: The study quality is fair. Completed 1530 Left Ventricle: The left ventricular chamber size is normal. Global left ventricular wall motion and contractility are within normal limits. There is normal left ventricular systolic function. The estimated ejection fraction is 55-60%. The assessment of diastolic function is non-diagnostic. Left Atrium: The left atrium is mildly dilated. Right Ventricle: The right ventricular cavity size is normal. A pacemaker wire is visualized in the right ventricle. Right Atrium: The right atrium is slightly dilated. Aortic Valve: The aortic valve is trileaflet. The aortic valve leaflets are mildly thickened. There is no evidence of aortic regurgitation. There is no evidence of aortic stenosis. Mitral Valve: The mitral valve leaflets appear normal. There is mild to moderate mitral regurgitation. There is no evidence of mitral stenosis. Tricuspid Valve: There is mild tricuspid regurgitation. The right ventricular systolic pressure is estimated at 32 mmHg. Pulmonic Valve: The pulmonic valve appears normal. Pericardium: There is no pericardial effusion. Aorta: There is no dilatation of the ascending aorta. The aortic arch is not well visualized. There is no dilation of the aortic root. Pulmonary Artery: The main pulmonary artery is not well visualized. Venous: The inferior vena cava appears normal in size. There is a greater than 50% respiratory change in the inferior vena cava dimension. Conclusions Global left ventricular wall motion and contractility are within normal limits. There is normal left ventricular systolic function. The estimated ejection fraction is 55-60%. A pacemaker wire is visualized in the right ventricle. The aortic valve leaflets are mildly thickened. There is no evidence of aortic regurgitation. There is mild to moderate mitral regurgitation. There is no evidence of mitral stenosis. There is mild tricuspid regurgitation. The right ventricular systolic pressure is estimated at 32 mmHg. There is no pericardial effusion. Measurements Name Value Normal Range RVIDd (AP) 2D 2.3 cm (0.9 - 2.6) RVDdMajor (2D) 2.2 cm (2.2 - 4.4) RAd ISD 4CH 5.6 cm (3.4 - 4.9) RA (A4C)W 3.1 cm (2.9 - 4.6) IVSd (2D) 0.8 cm (0.6 - 1) LVPWd (2D) 0.6 cm (0.6 - 1) LVIDd (2D) 4.3 cm (3.6 - 5.4) LVIDs (2D) 2.9 cm - LV FS (2D) 33 % (25 - 45) Aortic Annulus 1.8 cm (1.4 - 2.6) Ao root diameter (2D) 2.6 cm (2.1 - 3.5) Ascending Ao 3.2 cm (2.1 - 3.4) LA dimension (AP) 2D 4.4 cm (2.3 - 3.8) LAd ISD 4CH 5.5 cm (2.9 - 5.3) LA ISD 4CH W 4 cm (2.5 - 4.5) Name Value Normal Range LA ESV SP 4CH (A/L) 75 ml - LA ESV SP 2CH (A/L) 48 ml - LA ESV BP (A/L) 62 ml - LA ESV BP (A/L) index 36.98 ml/m2 - LA ESV SP 4CH (MOD) 72 ml - LA ESV SP 2CH (MOD) 46 ml - Name Value Normal Range MV E-wave Vmax 0.85 m/sec - MV deceleration time 153 msec - MV A-wave Vmax 0.86 m/sec - MV E:A ratio 1.01 ratio - LV septal e' Vmax 0.07 m/sec - LV lateral e' Vmax 0.12 m/sec - Name Value Normal Range LVOT diameter 2 cm - LVOT Vmax 0.9 m/sec - Name Value Normal Range TR Vmax 2.7 m/sec - TR peak gradient 29 mmHg - RAP 3 mmHg - RVSP 32 mmHg - IVC diameter 2.24 cm - Name Value Normal Range PV Vmax 0.58 m/sec - PV peak gradient 1.35 mmHg -
[2016-08-16] MEDS ORDERED: Metoprolol Tartrate IV* 1 MG/ML 5 ML VIAL IV PRN (16:37)
[2016-08-16] MEDS: Atenolol TAB* 25 MG PO SCH (16:42)
[2016-08-16] MEDS: Cholecalciferol TAB* 1000 UNITS PO SCH (16:42)
[2016-08-16] MEDS: Ferrous Sulfate TAB* 325 MG PO SCH (16:43)
[2016-08-16] MEDS: Omeprazole CAP* 20 MG PO SCH (16:43)
[2016-08-16] MEDS: predniSONE TAB* 20 MG PO SCH (16:43)
[2016-08-16] MEDS ORDERED: Azithromycin IV(*) 250 MG in NS 0.9% 250 ML* 250 ML IVPB SCH (17:00)
[2016-08-16] MEDS: levETIRAcetam IV* 750 MG in NS 0.9% 100 ML* 100 ML IVPB SCH (17:09)
[2016-08-16] MEDS: NS 0.9% 1000 ML* 1,000 ML IV SCH (17:10)
[2016-08-16] MEDS: methylPREDNISolone SOD 40 MG* 1 ML VIAL IV SCH (18:37)
--- NOTE | 2016-08-16 22:23 | CONS ---
NEUROLOGY CONSULTATION: DATE OF CONSULTATION: 08/16/16 REFERRING PHYSICIAN: Sosa Savage DO. LOCATION: She is an inpatient at [facility]. CHIEF COMPLAINT: Unresponsiveness. HISTORY OF PRESENT ILLNESS: Maria Del Rosario Barba is an 86-year-old right-handed woman who was admitted on 08/13/16, with progressive decline in ambulation, superimposed on progressive cognitive decline. The history is from the medical records as well as the patient's daughter. She was being evaluated for the possibility of polymyalgia rheumatica with elevated CRP and sedimentation rate, and stiff legs, with diminished ability to ambulate. She was treated with prednisone. She has a history of atrial fibrillation, was on Xarelto, but had probable GI bleeding when her hemoglobin dropped below 6 about 3 weeks ago, necessitating discontinuation of Xarelto and transfusion. This morning at about 7 o'clock her vitals were checked by her nurse and she was able to respond with her name and, I believe, possibly her date of , though I am unclear on that part. In any case, around 9:30, when they attempted to wake her, she did not respond. She was noted to have a gaze deviation and a code brower was called. I evaluated the patient at approximately 9:50 hours, which was 2 hours and 50 minutes after she was last known well, although that is debatable. In any case, she had a right gaze deviation at 9: 50 this morning, strong bilateral grasp reflexes, and did not respond other than occasional attempt to answer her name. Because of the recent GI bleeding, unclear duration, and that we are already approaching the 3-hour window, I elected not to treat with tPA. PAST MEDICAL HISTORY: Notable for chronic atrial fibrillation, pacemaker placement, recent presumptive GI bleeding with iron-deficiency anemia requiring transfusion, and progressive dementia for at least several years according to her daughter. MEDICATIONS: Today consists of: 1. Atenolol 25 mg p.o. every day. 2. Zithromax 500 mg p.o. every day. 3. Vitamin D. 4. Ferrous sulfate 325 mg p.o. b.i.d. 5. Heparin 5000 units subcutaneous q.8 hours. 6. Omeprazole 20 mg p.o. every day. 7. Prednisone 20 mg p.o. every day. 8. Trazodone 100 mg p.o. at bedtime. ALLERGIES: According to computer records, she has no known drug allergies. REVIEW OF SYSTEMS: Pretty much from the daughter. She has had progressive stiffness of her legs and difficulty walking such that there seems to be a disconnect when she tries to take a step. She was able to ambulate independently as well a few weeks ago with a cane. She has had progressive memory decline, but was independent 1 to 2 years ago. She moved to this area this past year because of a need for a higher level of support. PHYSICAL EXAMINATION: She is thin, but reasonably well hydrated. Temperature most recently 98.8, blood pressure 132/88, heart rate is irregularly irregular at about 100 beats per minute. I do not hear any heart murmurs. Neck is supple. Carotid pulses are weakly felt and I did not hear any bruits. Oral mucosa is moist and there is no evidence of oral trauma. Neurologically, this morning at 9:50, eyes were deviated pretty strongly to the right. Pupils reacted equally from 3 mm to 2 mm. Fundi revealed sharp disks bilaterally. She did not respond to visual threat. She did not respond to nasal tickle. Facial musculature seem symmetric, but there is little spontaneous facial movement. She was nonverbal. Motor exam revealed increased tone in all limbs and strong grasp reflexes bilaterally. I did not detect any asymmetries of tone. There was intermittent clonus in the fingers bilaterally. She had bilateral Babinski signs. She did not follow any commands earlier today. Now at 1345 hours, her eyes have a full range of motion without gaze deviation. She responds softly to a couple of questions such as telling me her name and saying "all right" when I say I will see her later on. She follows commands, grasping with her right hand, less so than her left, and has grasp reflexes bilaterally. Her left plantar remains extensor, but the right is not equivocal. She seems more alert, but still a bit hypersomnolent. DIAGNOSTIC STUDIES/LAB DATA: Includes a CT of the brain, done STAT this morning , which reveals atrophy and chronic subcortical ischemic changes. Other laboratory data notable for CBC on 08/16/16 with a hemoglobin of 9.2, which is down from 10.8 on 08/12/16. Sedimentation rate is 74 on 08/13/16. CRP on 08/12/16 was 160.9, it was 13.57 last November. EEG done this afternoon is notable for bihemispheric slowing, much more prominent from the left hemisphere than the right. In addition, there is phase reversing sharp waves from the left temporal region. IMPRESSION: Possible cardioembolic strokes versus new onset seizure versus both. She also has some type of an inflammatory process going on in the central nervous system, vasculitis would be a possibility. PLAN/RECOMMENDATIONS: Recommend starting levetiracetam 750 mg IV q.12 hours, and I have written the orders and alerted her nurse. I will repeat her EEG tomorrow. She has a pacer, so an MRI is out of the question, so we will repeat her CAT scan of the brain tomorrow. I would like to get a CT angiogram of the brain as well to look for evidence of vasculitis. Depending on how she does clinically, a lumbar puncture would be a consideration as well to look for chronic meningitis given her elevated inflammatory markers and progressive neurological decline. CC: Dr. Allred; Dr. Roy * [id number]/[facility] #: [id number] [facility]
[2016-08-17] MEDS: levETIRAcetam IV* 750 MG in NS 0.9% 100 ML* 100 ML IVPB SCH ×2 (01:41→16:04)
[2016-08-17] MEDS: Heparin VIAL(*) 5000 UNITS/ML VIAL (FIVE THOUSAND) SUBCUT SCH ×3 (05:15→21:27)
--- NOTE | 2016-08-17 06:55 | EEG ---
ELECTROENCEPHALOGRAM REPORT: DATE OF STUDY: 08/16/16 LOCATION: She is an inpatient in Room 437. REFERRING PROVIDER: Sosa Savage DO CHIEF COMPLAINT: Unresponsiveness, right gaze deviation in a patient with atrial fibrillation and d ementia. MEDICATIONS: Include atenolol, azithromycin, prednisone, omeprazole. EEG DESCRIPTION: This 16-channel EEG is remarkable for background activity consisting of diffuse sl owing more prominently from the left hemisphere than the right. Rhythms are generally in the theta and delta range. Lower amplitude beta rhythms are seen fairly diffusely. The patient appears to be in atrial fibrillation on the monitor. Phase reversing sharp waves are noted in the left mid tempo ral and sometimes anterior temporal region through the recording. There are no ictal events describ ed. Sleep stages are not clearly recognized. Activation procedures are not attempted. INTERPRETATION: Abnormal EEG due to diffuse slowing of background rhythms more prominently from the left hemisphere than from the right. In addition, phase reversing sharp wave discharges of epilept iform morphology are also noted. This tracing is compatible with bihemispheric dysfunction, worse o n the left hemisphere than the right and with possible epileptiform focus in the left temporal regio n. [id number]/[facility] #: [id number]
[2016-08-17] MEDS ORDERED: levETIRAcetam 500 MG IVPREMIX* 500 MG/100 ML BAG IV ONE (08:45)
[2016-08-17] MEDS ORDERED: Acyclovir IV(*) 600 MG in NS 0.9% 100 ML* 100 ML IVPB SCH (09:00)
[2016-08-17] MEDS: methylPREDNISolone SOD 40 MG* 1 ML VIAL IV SCH (09:54)
--- NOTE | 2016-08-17 09:54 | CONS ---
CC: Dr. Allred NEUROLOGY FOLLOWUP NOTE: DATE OF CONSULT/FOLLOWUP: 08/17/16 LOCATION: Inpatient, room 437. HOSPITALIST: Dr. Savage. CHIEF COMPLAINT: Possible strokes, seizures. INTERVAL HISTORY: Since yesterday, Maria Del Rosario remains on Keppra, azithromycin, and methylprednisolone. She has not had any clinical seizures, but her EEG is applied this morning and now she has bihemisp heric periodic discharges. She has diminished responsiveness described in her exam below. There ar e no new events over the night clinically. Medications were reviewed. She is on azithromycin 250 mg IV q.24 hours, levetiracetam 750 mg IV q.1 2 hours, methylprednisolone 20 mg IV daily, metoprolol 5 mg IV q.6 hours p.r.n. heart rate greater t mcgill 120. PHYSICAL EXAMINATION: She is well hydrated, T-max 98.2 orally, blood pressure 140/60, heart rate ab out 80 and seems regular, respiratory rate 20. Oxygen saturations 97% on supplemental oxygen. Neck is supple. She does not rise to soft voice, but with a moderately loud voice, she opens her eyes and looks at m e. She does not respond initially, but after several attempts, responds "good morning." She does n ot follow commands. She continues to have strong grasp reflexes and pretty much increased tone in a ll 4 limbs. There are no spontaneous abnormal movements. There is no gaze deviation. The only laboratory data back so far this morning is her EEG. Repeat CT scan of the brain and CT an giogram are pending for today. Ms. Barba now has bihemispheric discharges. Given the premorbid history and presentation, I am concerned she may have either a chronic meningitis such as cryptococcus or a vasculitis of the brain . Alternatively, she could have herpes simplex encephalitis, but I would not expect such a slow pro drome. I have written orders for a dose of acyclovir as well as an extra dose of IV Keppra. I have spoken with her daughter, Dominique Burns, on the phone this morning to discuss possible transfer to the [facility] care unit for continuous EEG monitoring and a lumbar puncture. She said that with discussion s with her family, they decided not to be that aggressive and they do not want to pursue a lumbar pu ncture nor transfer to the intensive care unit at this point in time. I will await the results of her CT angiogram and CT of the brain and will probably get another look at her EEG later today. I will discuss the situation with the Care Team here as well as the family this afternoon and decide on a course of action in terms of aggressivity in particular. [id number]/[facility] #: [id number]
[2016-08-17 11:34] LABS: Vitamin D 1,25-Dihydroxy 47 pg/mL (18-78)
--- NOTE | 2016-08-17 14:04 | PN ---
Subjective Date of Service: 08/17/16 Interval History: Pt denies any pain. She denies SOB. Her son states that she has conversed slightly with him today. She has mostly been seen looking to the right. Objective Active Medications: Heparin Sodium (Porcine) (Heparin Vial(*)) 5,000 units SUBCUT Q8HR [facility] Last Admin: 08/17/16 05:15 Dose: 5,000 units Levetiracetam 750 mg/ Sodium (Chloride) 107.5 mls @ 440 mls/hr IVPB Q12H [facility] Last Admin: 08/17/16 01:41 Dose: 440 mls/hr Azithromycin 250 mg/ Sodium (Chloride) 250 mls @ 250 mls/hr IVPB Q24H [facility] Last Admin: 08/16/16 18:37 Dose: 250 mls/hr Sodium Chloride (Ns 0.9% 1000 Ml*) 1,000 mls @ 50 mls/hr IV .PER RATE [facility] Last Admin: 08/16/16 17:10 Dose: 50 mls/hr Acyclovir Sodium 600 mg/ (Sodium Chloride) 112 mls @ 112 mls/hr IVPB Q8H [facility] Last Admin: 08/17/16 09:54 Dose: 112 mls/hr Methylprednisolone Sodium Succinate (Solu-Medrol*) 20 mg IV DAILY [facility] Last Admin: 08/17/16 09:54 Dose: 20 mg Metoprolol Tartrate (Lopressor Iv*) 5 mg IV Q6H PRN PRN Reason: HR>120 Vital Signs 08/16/16 08/16/16 08/17/16 19:47 20:00 00:30 Temperature 98.6 F 98.2 F Pulse Rate 77 107 Respiratory 20 18 20 Rate Blood Pressure 118/57 131/72 (mmHg) O2 Sat by Pulse 99 99 95 Oximetry 08/17/16 08/17/16 08/17/16 03:48 08:00 11:09 Temperature 97.7 F 98.8 F Pulse Rate 78 77 Respiratory 20 20 18 Rate Blood Pressure 141/58 128/48 (mmHg) O2 Sat by Pulse 97 97 95 Oximetry Oxygen Devices in Use Now: Nasal Cannula - 95%-4L Appearance: Elderly female lying in bed, eyes open, NAD Eyes: No Scleral Icterus Ears/Nose/Mouth/Throat: Mucous Membranes Moist Respiratory: Symmetrical Chest Expansion and Respiratory Effort, Clear to Auscultation - decreased breath sound at the R base Cardiovascular: NL Sounds; No Murmurs; No JVD, RRR, No Edema Abdominal: NL Sounds; No Tenderness; No Distention Extremities: No Clubbing, Cyanosis Skin: No Rash or Ulcers, No Nodules or Sclerosis Neurological: - - appears alert, + mild L facial droop, mild dysarthria (better than yesterday) appears to be only looking to the R, slight L UE weakness Result Diagrams: 08/16/16 05:22 08/16/16 09:58 Additional Lab and Data: Lab Results 08/12/16 08/12/16 08/12/16 Range/Units 17:50 17:58 17:58 WBC 11.9 H (3.5-10.8) 10^3/ul RBC 4.09 (4.0-5.4) 10^6/ul Hgb 10.8 L (12.0-16.0) g/dl Hct 35 (35-47) % MCV 84 (80-97) fL MCH 27 (27-31) pg MCHC 31 (31-36) g/dl RDW 15 (10.5-15) % Plt Count 294 (150-450) 10^3/ul MPV 7 L (7.4-10.4) um3 Neut % (Auto) 74.1 (38-83) % Lymph % (Auto) 12.7 L (25-47) % [place] % (Auto) 12.7 H (1-9) % Eos % (Auto) 0 (0-6) % Baso % (Auto) 0.5 (0-2) % Absolute Neuts (auto) 8.8 H (1.5-7.7) 10^3/ul Absolute Lymphs (auto) 1.5 (1.0-4.8) 10^3/ul Absolute Monos (auto) 1.5 H (0-0.8) 10^3/ul Absolute Eos (auto) 0 (0-0.6) 10^3/ul Absolute Basos (auto) 0.1 (0-0.2) 10^3/ul Absolute Nucleated RBC 0.01 10^3/ul Nucleated RBC % 0.1 INR (Anticoag Therapy) 1.03 (0.89-1.11) Sodium 132 L (133-145) mmol/L Potassium 4.1 (3.5-5.0) mmol/L Chloride 100 L (101-111) mmol/L Carbon Dioxide 25 (22-32) mmol/L Anion Gap 7 (2-11) mmol/L BUN 14 (6-24) mg/dL Creatinine 0.79 (0.51-0.95) mg/dL Est GFR ( Amer) 89.2 (>60) Est GFR (Non-Af Amer) 69.3 (>60) BUN/Creatinine Ratio 17.7 (8-20) Glucose 112 H (70-100) mg/dL Lactic Acid (0.5-2.0) mmol/L Calcium 8.9 (8.6-10.3) mg/dL Total Bilirubin 0.50 (0.2-1.0) mg/dL AST 26 (13-39) U/L ALT 17 (7-52) U/L Alkaline Phosphatase 152 H (34-104) U/L Troponin I 0.03 (<0.04) ng/mL C-Reactive Protein 160.94 H (< 5.00) mg/L Total Protein 7.3 (6.4-8.9) g/dL Albumin 3.2 (3.2-5.2) g/dL Globulin 4.1 H (2-4) g/dL Albumin/Globulin Ratio 0.8 L (1-3) Urine Color Urine Appearance Urine pH (5-9) Ur Specific [place] (1.010-1.030) Urine Protein (Negative) Urine Ketones (Negative) Urine Blood (Negative) Urine Nitrate (Negative) Urine Bilirubin (Negative) Urine Urobilinogen (Negative) Ur Leukocyte Esterase (Negative) Urine Glucose (Negative) Urine Ascorbic Acid (Negative) Influenza A (Rapid) (Negative) Influenza B (Rapid) (Negative) 08/12/16 08/12/16 08/12/16 Range/Units 17:58 18:47 20:00 WBC (3.5-10.8) 10^3/ul RBC (4.0-5.4) 10^6/ul Hgb (12.0-16.0) g/dl Hct (35-47) % MCV (80-97) fL MCH (27-31) pg MCHC (31-36) g/dl RDW (10.5-15) % Plt Count (150-450) 10^3/ul MPV (7.4-10.4) um3 Neut % (Auto) (38-83) % Lymph % (Auto) (25-47) % [place] % (Auto) (1-9) % Eos % (Auto) (0-6) % Baso % (Auto) (0-2) % Absolute Neuts (auto) (1.5-7.7) 10^3/ul Absolute Lymphs (auto) (1.0-4.8) 10^3/ul Absolute Monos (auto) (0-0.8) 10^3/ul Absolute Eos (auto) (0-0.6) 10^3/ul Absolute Basos (auto) (0-0.2) 10^3/ul Absolute Nucleated RBC 10^3/ul Nucleated RBC % INR (Anticoag Therapy) (0.89-1.11) Sodium (133-145) mmol/L Potassium (3.5-5.0) mmol/L Chloride (101-111) mmol/L Carbon Dioxide (22-32) mmol/L Anion Gap (2-11) mmol/L BUN (6-24) mg/dL Creatinine (0.51-0.95) mg/dL Est GFR ( Amer) (>60) Est GFR (Non-Af Amer) (>60) BUN/Creatinine Ratio (8-20) Glucose (70-100) mg/dL Lactic Acid 1.0 (0.5-2.0) mmol/L Calcium (8.6-10.3) mg/dL Total Bilirubin (0.2-1.0) mg/dL AST (13-39) U/L ALT (7-52) U/L Alkaline Phosphatase (34-104) U/L Troponin I (<0.04) ng/mL C-Reactive Protein (< 5.00) mg/L Total Protein (6.4-8.9) g/dL Albumin (3.2-5.2) g/dL Globulin (2-4) g/dL Albumin/Globulin Ratio (1-3) Urine Color Yellow Urine Appearance Clear Urine pH 6.0 (5-9) Ur Specific [place] 1.017 (1.010-1.030) Urine Protein Negative (Negative) Urine Ketones Negative (Negative) Urine Blood Negative (Negative) Urine Nitrate Negative (Negative) Urine Bilirubin Negative (Negative) Urine Urobilinogen Negative (Negative) Ur Leukocyte Esterase Negative (Negative) Urine Glucose Negative (Negative) Urine Ascorbic Acid * H (Negative) Influenza A (Rapid) Negative (Negative) Influenza B (Rapid) Negative (Negative) Assess/Plan/Problems-Billing Ms Barba is an 86 yo F who has a h/o afib, dementia and GERD who presented to the ER with c/o worsened confusion and fever and was admitted as she was found to be mildly hypoxic in the ER. - Patient Problems (1) Acute cerebrovascular accident (CVA) Current Visit: Yes Status: Acute Code(s): I63.9 - CEREBRAL INFARCTION, UNSPECIFIED SNOMED Code(s): 325142102 Comment: Pt remains with AMS-decreased interactiveness, dysarthric speech, mild L facial droop. Continue ASA 300mg [place] daily. EEG done yesterday and this AM show sharp discharges though no definitive seizure activity. Continue keppra per Dr. Abad. (2) RLL pneumonia Current Visit: Yes Status: Acute Code(s): J18.1 - LOBAR PNEUMONIA, UNSPECIFIED ORGANISM SNOMED Code(s): 139303812 Comment: Stop azithromycin as it can lower the seizure threshold. No definitive pna clinically. (3) Elevated C-reactive protein (CRP) Current Visit: Yes Status: Acute Code(s): R79.82 - ELEVATED C-REACTIVE PROTEIN (CRP) SNOMED Code(s): 326985470 Comment: Continue solumedrol while she is NPO. (4) Anemia Current Visit: Yes Status: Acute Code(s): D64.9 - ANEMIA, UNSPECIFIED SNOMED Code(s): 737055378 Comment: H/H stable. Continue to follow intermittently. (5) Afib Current Visit: Yes Status: Acute Code(s): I48.91 - UNSPECIFIED ATRIAL FIBRILLATION SNOMED Code(s): 63539256 Comment: Pt is in controlled afib. Continue prn metoprolol. (6) Dementia Current Visit: Yes Status: Acute Code(s): F03.90 - UNSPECIFIED DEMENTIA WITHOUT BEHAVIORAL DISTURBANCE SNOMED Code(s): 08306111 Comment: Mental status now markedly altered secondary to probable CVA. (7) GERD (gastroesophageal reflux disease) Current Visit: Yes Status: Acute Code(s): K21.9 - GASTRO-ESOPHAGEAL REFLUX DISEASE WITHOUT ESOPHAGITIS SNOMED Code(s): 951164148 Comment: Continue omeprazole. (8) DVT prophylaxis Current Visit: Yes Status: Acute Code(s): CUM3399 - SNOMED Code(s): 280045081 Comment: SQ heparin (9) Full code status Current Visit: Yes Status: Acute Code(s): Z78.9 - OTHER SPECIFIED HEALTH STATUS SNOMED Code(s): 094221129
[2016-08-17] MEDS ORDERED: Iohexol 350* (CONTRAST) 500 ML MDV IV ONE (15:17)
--- NOTE | 2016-08-17 15:56 | RAD ---
HISTORY: Stroke COMPARISONS: CT of the head dated August 16, 2016 TECHNIQUE: Multiple contiguous axial CT scans were obtained of the head before and after the administration of nonionic intravenous contrast timed to the systemic arterial phase of contrast enhancement. Coronal and sagittal multiplanar reformations are submitted for review. Multiple 3-D maximum intensity projection reconstructions are also submitted for review. FINDINGS: RIGHT VERTEBRAL ARTERY: The distal right vertebral artery is unremarkable, without stenosis. LEFT VERTEBRAL ARTERY: The distal left vertebral artery is unremarkable, without stenosis. DOMINANCE: The vertebral arteries are codominant. DISTAL RIGHT CERVICAL INTERNAL CAROTID ARTERY: The distal right cervical internal carotid artery is unremarkable. DISTAL LEFT CERVICAL INTERNAL CAROTID ARTERY: The distal left cervical internal carotid artery is unremarkable. INTRACRANIAL CIRCULATION: There is a branch occlusion of the proximal M2 branch of the anterior division of the right middle cerebral artery. There is distal reconstitution. This is best appreciated on sagittal image 13 of series 604.2 there appears to be partially calcified thrombus within this segment. The anterior communicating artery complex is clear. Bilateral posterior communicating arteries are identified. VENOUS CIRCULATION: The venous system is unremarkable. PERFUSION: There is no obvious parenchymal perfusion deficit. HEMORRHAGE/INFARCT: There is no hemorrhage or acute infarct. MASSES/SHIFT: There is no mass or shift. EXTRA-AXIAL SPACES: There are no extra-axial fluid collections. SULCI AND VENTRICLES: The sulci and ventricles are normal in size and position for the patient's stated age. CEREBRUM: There is hypoattenuation of the periventricular and subcortical white matter. BRAINSTEM: There are no focal parenchymal abnormalities. CEREBELLUM: There are no focal parenchymal abnormalities. PARANASAL SINUSES: There is opacification of the right maxillary sinus. ORBITS: The orbits are unremarkable. BONES AND SOFT TISSUE: No bone or soft tissue abnormalities are noted. OTHER: There is no abnormal enhancement. IMPRESSION: SHORT SEGMENT OCCLUSION WITH DISTAL RECONSTITUTION OF AN M2 SEGMENT OF THE RIGHT MIDDLE CEREBRAL ARTERY. PRELIMINARY FINDINGS WERE DISCUSSED WITH DR. LOMAS AT APPROXIMATELY 3:53 PM ON AUGUST 17, 2016.
[2016-08-17] MEDS: Aspirin SUPP* 300 MG PR SCH (16:04)
[2016-08-17] MEDS: NS 0.9% 1000 ML* 1,000 ML IV SCH (16:15)
--- NOTE | 2016-08-17 17:10 | PN ---
Subjective - Subjective History: Acute CVA: continue supportive care. On low dose Prednisone for polymyalgia rheumatica: continue gradual taper; follow inflammatory markers. Dementia: per neurology Low titer MAXI is likely not significant Pneumonia: improved Active Problems: Active Problems Acute cerebrovascular accident (CVA) (Acute) I63.9 Pt remains with AMS-decreased interactiveness, dysarthric speech, mild L facial droop. Continue ASA 300mg MN daily. EEG done yesterday and this AM show sharp discharges though no definitive seizure activity. Continue keppra per Dr. Abad. Afib (Acute) I48.91 Pt is in controlled afib. Continue prn metoprolol. Anemia (Acute) D64.9 H/H stable. Continue to follow intermittently. DVT prophylaxis (Acute) [id number] SQ heparin Dementia (Acute) F03.90 Mental status now markedly altered secondary to probable CVA. Elevated C-reactive protein (CRP) (Acute) R79.82 Continue solumedrol while she is NPO. Full code status (Acute) Z78.9 GERD (gastroesophageal reflux disease) (Acute) K21.9 Continue omeprazole. RLL pneumonia (Acute) J18.1 Stop azithromycin as it can lower the seizure threshold. No definitive pna clinically. Current Medications: Current Medications Aspirin (Aspirin Supp*) 300 mg [place] DAILY [facility] Last Admin: 08/17/16 16:04 Dose: 300 mg Heparin Sodium (Porcine) (Heparin Vial(*)) 5,000 units SUBCUT Q8HR [facility] Last Admin: 08/17/16 16:04 Dose: 5,000 units Levetiracetam 750 mg/ Sodium (Chloride) 107.5 mls @ 440 mls/hr IVPB Q12H [facility] Last Admin: 08/17/16 16:04 Dose: 440 mls/hr Sodium Chloride (Ns 0.9% 1000 Ml*) 1,000 mls @ 50 mls/hr IV .PER RATE [facility] Last Admin: 08/17/16 16:15 Dose: 50 mls/hr Methylprednisolone Sodium Succinate (Solu-Medrol*) 20 mg IV DAILY [facility] Last Admin: 08/17/16 09:54 Dose: 20 mg Metoprolol Tartrate (Lopressor Iv*) 5 mg IV Q6H PRN PRN Reason: HR>120 - Review of Systems General Comments: Looking toward the right Constitutional Symptoms: Yes: Weakness, No: Weight Gain, Unexplained Falls Cardiology: Positive: Normal Gastroenterology: Positive: Normal Hematologic/Lymphatic: Positive: Anemia Neurology: Positive: Hx of Stroke\TIA, Hx of Seizures Psychiatry: Positive: Unusual Fatigue Home Medications: Home Medications Medication Instructions Recorded Confirmed Type Ascorbic Acid [Vitamin C] 500 mg PO DAILY 12/04/15 08/13/16 History Calcium Carbonate-Cholecalcife 1 tab PO BID 12/04/15 08/13/16 History [Calcium 500 +D3 500-600 mg-Unit] Cholecalciferol [Vitamin D3] 1,000 unit PO DAILY 12/04/15 08/13/16 History Cranberry-Vitamin C-Probiotic [Azo 1 tab PO BID 12/04/15 08/13/16 History Cranberry 250-30 mg] Ferrous Sulfate TAB* 325 mg PO BID 12/04/15 08/13/16 History Multiple Vitamins W/ Minerals 1 pow PO DAILY 12/04/15 08/13/16 History [Centrum Multivitamin Flav] Multiple Vitamins W/ Minerals 1 cap PO BID 12/04/15 08/13/16 History [[facility] Formul] traZODone TAB* [Desyrel TAB*] 100 mg PO BEDTIME 12/04/15 08/13/16 History Atenolol TAB* [Tenormin TAB* 25 MG] 0.5 tab PO DAILY 07/22/16 08/13/16 History Furosemide TAB* [Lasix TAB*] 20 mg PO SEE INSTRUCTIONS 07/22/16 08/13/16 History Omeprazole CAP* [Prilosec CAP* 20 20 mg PO DAILY 08/13/16 08/13/16 History MG] Allergies: Allergies Allergy/AdvReac Type Severity Reaction Status Date / Time No Known Allergies Allergy Verified 07/22/16 15:53 Objective - Vital Signs Vital Signs: Vital Signs 08/16/16 08/16/16 08/17/16 19:47 20:00 00:30 Temperature 98.6 F 98.2 F Pulse Rate 77 107 Respiratory 20 18 20 Rate Blood Pressure 118/57 131/72 (mmHg) O2 Sat by Pulse 99 99 95 Oximetry 08/17/16 08/17/16 08/17/16 03:48 08:00 11:09 Temperature 97.7 F 98.8 F Pulse Rate 78 77 Respiratory 20 20 18 Rate Blood Pressure 141/58 128/48 (mmHg) O2 Sat by Pulse 97 97 95 Oximetry - Intake and Output Intake and Output: Intake & Output 08/15/16 08/16/16 08/17/16 08/18/16 06:59 06:59 06:59 06:59 Intake Total 2312 760 751 428 Output Total 0 0 Balance 2312 760 751 428 Weight 132 lb Intake: IV Fluids 881 580 308 ABX - AZITHROMYCIN 275 ABX - CEFTRIAXONE 112 Keppra 468 123 NS (0.9%) 50 185 IVPB 621 171 120 ABX - CEFTRIAXONE 65 65 Keppra 106 120 NS (0.9%) 556 Oral 810 760 0 0 Output: Urine 0 0 Other: Estimated Void Large Large Large Large # Bowel Movements 0 0 1 Estimated Stool Amount Small # Voids 1 1 1 1 ADLs: Meal Record Start: 08/13/16 05: 38 Freq: DAILY@0900,1400,1800 Status: Active Created 08/13/16 05:38 System (Rec: 08/13/16 05:38 System MED-C16) Document 08/13/16 09:00 [id number] (Rec: 08/13/16 10:15 [id number] MED-C09) Document 08/13/16 13:52 [id number] (Rec: 08/13/16 14:31 [id number] MED-C09) Document 08/14/16 14:00 [id number] (Rec: 08/14/16 15:15 [id number] MED-C11) Document 08/14/16 18:00 [id number] (Rec: 08/14/16 18:42 [id number] MED-C11) Document 08/15/16 09:00 [id number] (Rec: 08/15/16 15:21 [id number] MED-C09) Document 08/15/16 18:00 [id number] (Rec: 08/15/16 18:31 [id number] MED-C11) Document 08/16/16 14:00 [id number] (Rec: 08/16/16 15:03 [id number] TELE-C01) Document 08/16/16 18:00 [id number] (Rec: 08/16/16 23:13 [id number] TELE-C01) Document 08/17/16 09:00 [id number] (Rec: 08/17/16 09:07 [id number] TELE-C01) Document 08/17/16 14:00 [id number] (Rec: 08/17/16 14:35 [id number] TELE-C01) Intake and Output Start: 08/13/16 05: 38 Freq: DAILY@0600,1400,2200 Status: Active Created 08/13/16 05:38 System (Rec: 08/13/16 05:38 System MED-C16) Document 08/13/16 13:52 [id number] (Rec: 08/13/16 14:31 [id number] MED-C09) Document 08/13/16 22:00 [id number] (Rec: 08/13/16 22:36 [id number] MED-C11) Document 08/14/16 05:16 [id number] (Rec: 08/14/16 05:16 [id number] MED-C26) Document 08/14/16 22:00 [id number] (Rec: 08/14/16 23:04 [id number] MEDL-C01) Document 08/15/16 05:19 [id number] (Rec: 08/15/16 05:19 [id number] MED-C42) Document 08/15/16 14:00 [id number] (Rec: 08/15/16 15:32 [id number] MED-C09) Document 08/15/16 21:39 [id number] (Rec: 08/15/16 21:39 [id number] MED-C11) Document 08/16/16 05:51 [id number] (Rec: 08/16/16 05:51 [id number] MED-C26) Document 08/16/16 14:00 [id number] (Rec: 08/16/16 15:03 [id number] TELE-C01) Document 08/16/16 22:00 [id number] (Rec: 08/16/16 23:15 [id number] TELE-C01) Document 08/17/16 06:00 [id number] (Rec: 08/17/16 06:41 [id number] TELE-C35) Document 08/17/16 14:00 [id number] (Rec: 08/17/16 14:35 [id number] TELE-C01) - Physical Exam General Physical Exam Comment: NAD denies pain, looking to the right Lungs and Chest: Yes: Chest Expansion Full, Chest Expansion Symetrica Heart Rate and Rhythm: Normal JVP: Not Elevated Abdominal Exam: Yes: Soft - Rheumotological System Joints: Range of Motion - No synovitis or warmth of her joints - Neuro Orientation: Encephalopathic Results - Results Lab Results: Laboratory Results - last 24 hr 08/13/16 16:11 Vit D 1,25-Dihydroxy 47 Cyclic Citrull Peptide <15.6 Anti-Nuclear Antibody 1.4 H MAXI Interpretation See comment Assessment - Problem List Assessment: Patient Problems Acute cerebrovascular accident (CVA) (Acute) Afib (Acute) Anemia (Acute) DVT prophylaxis (Acute) Dementia (Acute) Elevated C-reactive protein (CRP) (Acute) Full code status (Acute) GERD (gastroesophageal reflux disease) (Acute) RLL pneumonia (Acute) Plan: Acute CVA: continue supportive care. On low dose Prednisone for polymyalgia rheumatica: continue gradual taper; follow inflammatory markers. Dementia: per neurology Low titer MAXI is likely not significant Pneumonia: improved
[2016-08-18] MEDS: levETIRAcetam IV* 750 MG in NS 0.9% 100 ML* 100 ML IVPB SCH ×2 (01:02→15:12)
[2016-08-18] MEDS ORDERED: NS 0.9% 100 ML* 100 ML ONE (05:00)
[2016-08-18] MEDS: Heparin VIAL(*) 5000 UNITS/ML VIAL (FIVE THOUSAND) SUBCUT SCH ×3 (05:04→22:08)
[2016-08-18] MEDS: methylPREDNISolone SOD 40 MG* 1 ML VIAL IV SCH (08:24)
[2016-08-18] MEDS: Aspirin SUPP* 300 MG PR SCH (08:24)
--- NOTE | 2016-08-18 08:53 | EEG ---
ELECTROENCEPHALOGRAPHY: DATE OF STUDY: 08/17/16 REFERRING PHYSICIAN: Sosa Savage DO LOCATION: She is an inpatient at room 437. CLINICAL PROBLEM: Unresponsiveness beginning the day prior to this recording. The patient has atri al fibrillation and possible inflammatory disorder. MEDICATIONS: Include: 1. Levetiracetam. 2. Solu-Medrol. REPORT: This 16-channel EEG is remarkable for background activity consisting of mixed slow activity in the theta and delta range. Periodic epileptiform discharges are seen most prominently from the right hemisphere, but "mere" foci are seen less prominently from the left hemisphere. Discharges em anate most prominently from the right central parietal area. The patient is clinically unresponsive , but with eyes open and does not follow commands through most of the recording. The patient does n ot respond to good morning at one point during the recording to the examiner. Left hemispheric disch arges appear to be mirror foci of right hemispheric discharges without clearcut independent left hem ispheric discharges. Discharges are seen quieter when the patient is calm and quiet and abundance o f slow activity suggesting drowsiness or perhaps even slow wave sleep. Activation procedures are no t attempted. CLINICAL IMPRESSION: Abnormal EEG due to epileptiform discharges seen bihemispherically, but mainly from the right hemisphere. There were no clinical events or ictal discharges noted. Tracing is co mpatible with severe bilateral hemispheric dysfunction, worse on the right with possibly of an epile ptiform focus in the right hemisphere. [id number]/[facility] #: [id number]
[2016-08-18] MEDS: NS 0.9% 1000 ML* 1,000 ML IV SCH (12:46)
--- NOTE | 2016-08-18 20:42 | CONS ---
NEUROLOGY FOLLOWUP NOTE: DATE OF FOLLOWUP: 08/18/16 HOSPITALIST: Dr. Rene. LOCATION: She is inpatient in Room #437. CHIEF COMPLAINT: Stroke. INTERVAL HISTORY: Since yesterday, Maria Del Rosario has fluctuated. Last evening, she was talking to the family and even asking some simple questions. This morning she was reportedly also able to answer a few questions. She seems more tired this afternoon when I evaluated her. There have been no new clinical events. MEDICATIONS: Reviewed and she remains on: 1. Aspirin 300 mg p.r. daily. 2. Levetiracetam 750 mg IV q.12 hours. 3. Methylprednisolone 20 mg IV daily. 4. Metoprolol 5 mg IV q.6 hours p.r.n. heart rate greater than 120. PHYSICAL EXAMINATION: On limited physical examination, temperature 98.7 temporally, blood pressure 131/75, heart rate 80 and regular. She is able to respond briefly with single or two word responses but then closes her eyes and often does not respond. There is minimal spontaneous movement, but she is able to lift her hands up off her left pretty symmetrically. She is able to regard the examiner visually but still does not see to the left. DIAGNOSTIC STUDIES/LAB DATA: There is no new laboratory data to review. There are no new studies to review. 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 There does not appear to be evidence of intracranial infection as best as I can tell short of doing a lumbar puncture. The family does not want to be that aggressive and at this point, the plan is to try to get her to a intermediate if she can take p.o. adequately, if not palliative care . I will decrease her Keppra given there is no clinical evidence of seizures and as it might be suppressing her level of awareness. We will continue to follow while she is here. CC: Dr. lAlred * [id number]/[facility] #: [id number] PHYLLIS
[2016-08-19] MEDS: Heparin VIAL(*) 5000 UNITS/ML VIAL (FIVE THOUSAND) SUBCUT SCH (05:55)
--- NOTE | 2016-08-19 07:47 | DS ---
DISCHARGE/TRANSFER SUMMARY: DATE OF ADMISSION: 08/13/16 DATE OF DISCHARGE: 08/19/16. PRIMARY CARE PROVIDER: Dr. Deirdre Allred.// AMIRAH HENDRICKS PRINCIPAL DISCHARGE DIAGNOSIS: Right MCA stroke while in hospital in the setting of bibasilar pneumonia for which the patient was primarily admitted on 08/13/16. SECONDARY DIAGNOSES: 1. History of atrial fibrillation. 2. Pacemaker/ICD. 3. Alzheimer's dementia. 4. Likely polymyalgia rheumatica with steroid taper initiated in the hospital. DISCHARGE MEDICATION REGIMEN: 1. Vitamin C 500 mg by mouth daily. 2. Calcium carbonate cholecalciferol one tablet by mouth twice daily. 3. Cranberry, vitamin C, probiotic one tablet by mouth twice daily. 4. Atenolol 12.5 mg by mouth daily. 5. Cholecalciferol 1000 mg by mouth daily. 6. Ferrous sulfate 325 mg by mouth twice daily. 7. Furosemide 20 mg by mouth daily. 8. Centrum multivitamin one tablet by mouth twice daily. 9. Omeprazole 20 mg by mouth daily. 10. Trazodone 100 mg by mouth at bedtime. 11. Keppra 500 mg by mouth twice daily. 12. Prednisone 10 mg by mouth tapered down to 5 mg in 5 days. 13. Aspirin 325 mg by mouth daily. HISTORY OF PRESENT ILLNESS AND HOSPITAL COURSE: Please see the admission documentation by Dr. Tony Martinez in the emergency room and Dr. Mahin Henderson of the hospitalist group on 08/12/16 and 08/13/16, respectively. In brief, Ms. Barba is an 86-year-old woman with a history of Alzheimer's dementia with concern for influenza and likely postviral pneumonia. The patient was more confused than her baseline with a fever that she had at her home. The patient was currently on ciprofloxacin for possible urinary tract infection. The initial workup was fairly unremarkable with the possibility of pneumonia present given her chest x-ray findings of bibasilar patchy infiltrates with the fever and shortness of breath, and so the patient was placed on observation status initially and started on IV antibiotics. The patient did generally well. She was upgraded to admission because of her failure to clinically progress quickly. On 08/16/16, the patient had a significant setback described by Dr. Sosa Savage, who was alerted by the patient's nurse that she speaking only out of the right side of her mouth. Her speech was difficult to understand. The patient was much more somnolent than previously observed, and required sternal rub to awaken. The patient clearly had a left facial droop and was dysarthric and could not answer any of the physician's questions. A james brower was called and the patient had an acute workup, and the initial head CT did not show an infarct. The patient was treated according to the code brower protocol. She was treated with aspirin. She was moved to telemetry. She was seen by Dr. Abad in consultation. Followup head CTA demonstrated a short segment occlusion in the proximal M2 branch of the anterior division of the right middle cerebral artery, which explained her clinical findings. She had an EEG with epileptiform discharges. For this reason, she was started on Keppra. Her Keppra dose was likely a bit high because of subsequent somnolence , but the patient did not have any new focality on her neuro exam, so she was dropped to 500 mg by mouth twice daily. She had a speech and swallow evaluation where she was cleared for thickened liquids, and this information will be included in the discharge instructions but the patient has been doing well with her initial feeding on 08/18/16. Clinically, she is stable for transfer back to [facility] where she will be evaluated by Dr. Deirdre Allred. I will place a courtesy call to Dr. Allred to alert that I did have a palliative care style discussion with the patient's family, who is very interested in setting limits of future care, specifically DNR status with instructions for no intubation, and perhaps even no hospitalizations, but this will have to be further explored with the patient's family who are acting as her surrogate decision maker. Specifically, I spoke with the patient's daughter and son; her son flew in from [place]. They are very involved in caring and they are most interested in the patient's comfort at this point. TIME SPENT: Total time taken to discharge Ms. Barba was 60 minutes; greater than half the time spent going over the discharge instructions and having the palliative care discussion with the patient and her family. CC: Dr. Deirdre Allred* [id number]/[facility] #: [id number] MTDD
[2016-08-19] MEDS ORDERED: levETIRAcetam IV* 500 MG in NS 0.9% 100 ML* 100 ML IVPB SCH (08:00)
[2016-08-19] MEDS ORDERED: levETIRAcetam 500 MG IVPREMIX* 500 MG/100 ML BAG IV SCH (08:00)
[2016-08-19 08:19] VITALS: BP 118/62
[2016-08-19] MEDS: methylPREDNISolone SOD 40 MG* 1 ML VIAL IV SCH (08:30)
[2016-08-19] MEDS: NS 0.9% 1000 ML* 1,000 ML IV SCH (08:30)
[2016-08-19] MEDS: Aspirin SUPP* 300 MG PR SCH (08:31)
== END 2016-08-19 10:40 | DRG 193 ==
LOC: ED 16:40 → MED 08-13 04:56 → OBSVTOIN 08-13 16:00 → MEDTELE 08-16 09:38
PROVIDERS: ADMIT Internal Medicine; ATTEND Internal Medicine
PROC: 4A00X4Z Measurement of Central Nervous Electrical Activity, External Approach (ICD-10-PCS; principal; 2016-08-13)
DX: J18.1 Lobar pneumonia, unspecified organism (principal); I63.511 Cerebral infarction due to unspecified occlusion or stenosis of right middle cerebral artery; N39.0 Urinary tract infection, site not specified; R09.02 Hypoxemia; K21.9 Gastro-esophageal reflux disease without esophagitis; R00.0 Tachycardia, unspecified; G30.9 Alzheimer's disease, unspecified; F02.80 Dementia in other diseases classified elsewhere, unspecified severity, without behavioral disturbance, psychotic disturbance, mood disturbance, and anxiety; Z96.649 Presence of unspecified artificial hip joint; Z96.659 Presence of unspecified artificial knee joint; R79.82 Elevated C-reactive protein (CRP); D64.9 Anemia, unspecified; R29.810 Facial weakness; R47.1 Dysarthria and anarthria; R41.82 Altered mental status, unspecified; M35.3 Polymyalgia rheumatica; I48.2 Chronic atrial fibrillation; Z99.81 Dependence on supplemental oxygen; Z95.810 Presence of automatic (implantable) cardiac defibrillator; Z90.710 Acquired absence of both cervix and uterus; Z95.0 Presence of cardiac pacemaker; Z90.49 Acquired absence of other specified parts of digestive tract; Z79.82 Long term (current) use of aspirin
CPT/HCPCS: 36415; 70450; 70496; 71010; 76705; 80048; 80053; 81003; 82248; 82306; 82607; 82608; 82652; 83605; 84145; 84484; 85025; 85027; 85610; 85652; 86038; 86140; 86200; 87040; 87502; 87641; 87899; 93005; 93306; 93880; 94760; 95812; 95819; 99285; A9270-GY; G0378; G8978-GP-CM; G8979-GP-CI; G8987-GO-CM; G8988-GO-CK; J0133; J0456; J0696; J1644; J2920; J7512; Q9967